=== PATIENT | female | born 1980 | race Caucasian/White ===

== ENCOUNTER 2017-05-09 13:21 | Emergency (ER) | payer BC ==
[~2017-05-09] VITALS: Ht 162.6 cm; Wt 149.7 kg
[~2017-05-09 13:21] MED LIST: ACHYD1T PO; LVT.1T PO; NAPR550T PO; ORPH100T PO; PREN1TAB39 PO; PROP1TAB77 PO
--- OUTSIDE RECORDS SUMMARY | 2017-05-09 13:28 | XMS REPORT | Continuity of Care Document ---
Author Author [facility] Address Unknown Phone Unavailable Allergies Active Description Code Type Severity Reaction Onset Reported/Identified Relationship to Patient Clinical Status Yes No Known Drug Allergies [id number] Drug Allergy Unknown N/A 12/01/2009 Medications There is no data. Problems Date Dx Coded Attending Type Code Diagnosis Diagnosed By 03/17/2011 Ot 631.8 OTHER ABNORMAL PRODUCTS OF CONCEPTION 04/12/2012 V04.81 FLU DX (3 YRS AND ABOVE, IM) 04/12/2012 V04.81 FLU DX (3 YRS AND ABOVE, IM) 04/12/2012 V04.81 FLU DX (3 YRS AND ABOVE, IM) 04/12/2012 RAJOTTE ROLLER COASTER DESIGNER, SARAHI A V04.81 FLU DX (3 YRS AND ABOVE, IM) 04/12/2012 RAJOTTE ROLLER COASTER DESIGNER, SARAHI A V04.81 FLU DX (3 YRS AND ABOVE, IM) 04/12/2012 RAJOTTE ROLLER COASTER DESIGNER, SARAHI A V04.81 FLU DX (3 YRS AND ABOVE, IM) 04/12/2012 RAJOTTE ROLLER COASTER DESIGNER, SARAHI A V04.81 FLU DX (3 YRS AND ABOVE, IM) 07/30/2012 466.0 BRONCHITIS, ACUTE 07/30/2012 786.05 SHORTNESS OF BREATH 07/30/2012 786.2 COUGH 07/30/2012 466.0 BRONCHITIS, ACUTE 07/30/2012 786.05 SHORTNESS OF BREATH 07/30/2012 786.2 COUGH 07/30/2012 RAJOTTE ROLLER COASTER DESIGNER, SARAHI A 466.0 BRONCHITIS, ACUTE 07/30/2012 RAJOTTE ROLLER COASTER DESIGNER, SARAHI A 786.05 SHORTNESS OF BREATH 07/30/2012 RAJOTTE ROLLER COASTER DESIGNER, SARAHI A 786.2 COUGH 07/30/2012 RAJOTTE ROLLER COASTER DESIGNER, SARAHI A 466.0 BRONCHITIS, ACUTE 07/30/2012 RAJOTTE ROLLER COASTER DESIGNER, SARAHI A 786.05 SHORTNESS OF BREATH 07/30/2012 RAJOTTE ROLLER COASTER DESIGNER, SARAHI A 786.2 COUGH 07/30/2012 RAJOTTE ROLLER COASTER DESIGNER, SARAHI A 466.0 BRONCHITIS, ACUTE 07/30/2012 RAJOTTE ROLLER COASTER DESIGNER, SARAHI A 786.05 SHORTNESS OF BREATH 07/30/2012 RAJOTTE ROLLER COASTER DESIGNER, SARAHI A 786.2 COUGH 07/30/2012 RAJOTTE ROLLER COASTER DESIGNER, SARAHI A 466.0 BRONCHITIS, ACUTE 07/30/2012 RAJOTTE ROLLER COASTER DESIGNER, SARAHI A 786.05 SHORTNESS OF BREATH 07/30/2012 RAJOTTE ROLLER COASTER DESIGNER, SARAHI A 786.2 COUGH 08/02/2012 461.0 SINUSITIS, ACUTE MAXILLARY 08/02/2012 RAJOTTE ROLLER COASTER DESIGNER, SARAHI A 461.0 SINUSITIS, ACUTE MAXILLARY 08/02/2012 RAJOTTE ROLLER COASTER DESIGNER, SARAHI A 461.0 SINUSITIS, ACUTE MAXILLARY 08/02/2012 RAJOTTE ROLLER COASTER DESIGNER, SARAHI A 461.0 SINUSITIS, ACUTE MAXILLARY 08/02/2012 RAJOTTE ROLLER COASTER DESIGNER, SARAHI A 461.0 SINUSITIS, ACUTE MAXILLARY 02/09/2014 RAJOTTE ROLLER COASTER DESIGNER, SARAHI A 462 PHARYNGITIS ACUTE 02/09/2014 RAJOTTE ROLLER COASTER DESIGNER, SARAHI A 463 TONSILLITIS ACUTE 02/09/2014 RAJOTTE ROLLER COASTER DESIGNER, SARAHI A 462 PHARYNGITIS ACUTE 02/09/2014 RAJOTTE ROLLER COASTER DESIGNER, SARAHI A 463 TONSILLITIS ACUTE 06/25/2014 Ot 241.1 07/03/2014 Ot 241.1 05/20/2015 IVANNA MICHELE DO Ot E06.3 10/04/2015 Ot 626.8 MENSTRUAL DISORDER NEC 10/04/2015 Ot 626.8 MENSTRUAL DISORDER NEC 10/04/2015 Ot 285.9 ANEMIA NOS 10/04/2015 Ot 631.8 OTHER ABNORMAL PRODUCTS OF CONCEPTION 10/04/2015 Ot V72.63 PRE- PROCEDURAL LABORATORY EXAMINATION 10/04/2015 Ot V74.8 SCREEN- BACTERIAL DIS NEC 10/04/2015 KHURRAM ISAACS DO Ot 241.0 NONTOX UNINODULAR GOITER 10/04/2015 KHURRAM ISAACS DO Ot 241.0 NONTOX UNINODULAR GOITER 10/04/2015 Ot 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 Encounters ACCT No. Visit Date/Time Discharge Status Pt. Type Provider Facility Loc./Unit Complaint [id number] 02/11/2014 08:37:00 02/11/2014 23:59:59 CLS Outpatient SARAHI GÓMEZ APRN [id number] 02/09/2014 08:57:00 02/09/2014 23:59:59 CLS Outpatient SARAHI GÓMEZ APRN [id number] 07/29/2013 10:48:00 07/29/2013 23:59:59 CLS Outpatient SARAHI GÓMEZ APRN [id number] 01/27/2013 09:35:00 01/27/2013 23:59:59 CLS Outpatient SARAHI GÓMEZ APRN [id number] 04/16/2012 12:08:00 04/16/2012 23:59:59 CLS Outpatient [id number] 08/02/2012 15:35:00 Document Registration [id number] 07/30/2012 08:21:00 Document Registration [id number] 04/16/2012 13:10:33 RECURRING [id number] 05/06/2015 08:07:00 05/06/2015 23:59:59 CLS Outpatient IVANNA MICHELE DO [facility] LAB [id number] 04/29/2013 08:52:00 04/29/2013 23:59:59 CLS Outpatient KHURRAM ISAACS DO [facility] RAD [id number] 04/15/2013 10:04:00 04/15/2013 23:59:59 CLS Outpatient KHURRAM ISAACS DO [facility] RAD [id number] 05/09/2017 13:23:00 ACT Emergency AFSHAN SMITH, IKE Rocha [facility] ER COUGH,DIZZY,SHAKEY [id number] 10/04/2015 05:53:00 Document Registration [id number] 06/17/2014 11:18:00 Document Registration [id number] 06/08/2014 15:45:00 Document Registration [id number] 03/17/2011 05:30:00 Document Registration [id number] 03/16/2011 09:53:00 Document Registration [id number] 10/12/2010 09:57:00 Document Registration [id number] 08/16/2010 15:26:00 Document Registration
--- OUTSIDE RECORDS SUMMARY | 2017-05-09 13:28 | XMS REPORT ---
Author Author SARAHI GÓMEZ [facility] [employer] Address Unknown Phone Unavailable Care Team Providers Care Car Hop Name Role Phone SARAHI GÓMEZ CP Unavailable Allergies No Known Allergies Problems Problem Type Condition Code Onset Dates Condition Status Problem Cough 786.2 Active Assessment Cough R05 Active Problem Acute maxillary sinusitis 461.0 Active Problem Acute tonsillitis 463 Active Problem Obstructive chronic bronchitis, with (acute) exacerbation 491.21 Active Problem Shortness of breath 786.05 Active Problem Acute bronchitis 466.0 Active Problem Acute pharyngitis 462 Active Problem Need for prophylactic vaccination and inoculation, Influenza V04.81 Active Medications No Known Medications Procedures Procedure Coding System Code Date CHEST X-RAY CPT-4 75765 Jan 19, 2016 Results No Known Results Summary Purpose eClinicalWorks Submission
--- OUTSIDE RECORDS SUMMARY | 2017-05-09 13:28 | XMS REPORT ---
Author Author SARAHI GÓMEZ [facility] [facility] Address [address] [place] [address] Care Team Providers Care Clinical Programmer Name Role Phone GRZEGORZMonseSARAHI Unavailable PROBLEMS Type Condition ICD9-CM Code [id number] Code Onset Dates Condition Status SNOMED Code Assessment Acute recurrent frontal sinusitis J01.11 Mar, Active [id number] ALLERGIES Substance Reaction Event Type Date Status N.K.D.A. Unknown Non Drug Allergy Mar, Unknown SOCIAL HISTORY No smoking Hx information available PLAN OF CARE VITAL SIGNS Height 64 in 2016-03-09 Weight 308 lbs 2016-03-09 Heart Rate 80 bpm 2016-03-09 Respiratory Rate 20 2016-03-09 BMI 52.86 kg/m2 2016-03-09 Blood pressure systolic 120 mmHg 2016-03-09 Blood pressure diastolic 76 mmHg 2016-03-09 MEDICATIONS Medication Instructions Dosage Frequency Start Date End Date Duration Status Levothyroxine Sodium Active Flonase Allergy Relief 50 MCG/ACT Nasally twice a day 1 spray in each nostril 12h Mar, 30 day(s) Active Levaquin 500 MG Orally Once a day 1 tablet 24h Mar, Mar, 10 day(s) Active Spironolactone Active Metformin HCl Active RESULTS No Results PROCEDURES Procedure Date Ordered Related Diagnosis Body Site Office Visit, Est Pt., Level 4 Mar 09, 2016 IMMUNIZATIONS No Known Immunizations
--- OUTSIDE RECORDS SUMMARY | 2017-05-09 13:28 | XMS REPORT ---
Author Author SARAHI GÓMEZ [facility] Address [address] [place] [address] Care Team Providers Care Alteration Specialist Name Role Phone SARAHI GÓMEZ Unavailable PROBLEMS Unknown Problems ALLERGIES No Known Allergies SOCIAL HISTORY No smoking Hx information available PLAN OF CARE Activity Details Follow Up prn Reason: VITAL SIGNS Height 64 in 2016-04-18 Weight 308 lbs 2016-04-18 Temperature 98.1 degrees Fahrenheit 2016-04-18 Heart Rate 103 bpm 2016-04-18 Respiratory Rate 20 2016-04-18 BMI 52.86 kg/m2 2016-04-18 Blood pressure systolic 120 mmHg 2016-04-18 Blood pressure diastolic 84 mmHg 2016-04-18 MEDICATIONS Medication Instructions Dosage Frequency Start Date End Date Duration Status Spironolactone Active Flonase Allergy Relief 50 MCG/ACT Nasally twice a day 1 spray in each nostril 12h 08 Mar, 2016 30 day(s) Active Cephalexin 500 MG Orally Twice a day 1 capsule 12h Apr, Apr, 10 day(s) Active Levothyroxine Sodium Active Metformin HCl Active RESULTS No Results PROCEDURES Procedure Date Ordered Related Diagnosis Body Site Office Visit, Est Pt., Level 3 Apr 18, 2016 IMMUNIZATIONS No Known Immunizations
--- OUTSIDE RECORDS SUMMARY | 2017-05-09 13:28 | XMS REPORT ---
Author SARAHI Woods [facility] [employer] Address Unknown Phone Unavailable Care Team Providers Care Biomedical Engineering Technician Name Role Phone SARAHI GÓMEZ CP Unavailable Allergies No Known Allergies Problems Problem Type Condition Code Onset Dates Condition Status Problem Cough 786.2 Active Assessment Encounter for immunization Z23 Active Problem Acute maxillary sinusitis 461.0 Active Problem Acute tonsillitis 463 Active Problem Obstructive chronic bronchitis, with (acute) exacerbation 491.21 Active Problem Shortness of breath 786.05 Active Problem Acute bronchitis 466.0 Active Problem Acute pharyngitis 462 Active Problem Need for prophylactic vaccination and inoculation, Influenza V04.81 Active Medications No Known Medications Procedures Procedure Coding System Code Date SINGLE IMMUNIZATION ADMIN CPT-4 29476 Jan 18, 2015 TDAP (BOOSTRIX) CPT-4 69315 Jan 18, 2015 Results No Known Results Immunizations Vaccine Administration Date TDAP (BOOSTRIX) Jan 18, 2015 Summary Purpose eClinicalWorks Submission
--- OUTSIDE RECORDS SUMMARY | 2017-05-09 13:28 | XMS REPORT ---
Author Author SARAHI GÓMEZ [facility] [employer] Address Unknown Phone Unavailable Care Team Providers Care Edge Inker Name Role Phone SARAHI GÓMEZ CP Unavailable Allergies, Adverse Reactions, Alerts Substance Reaction Event Type N.K.D.A. Info Not Available Non Drug Allergy Problems Problem Type Condition Code Onset Dates Condition Status Problem Cough 786.2 Active Assessment Sinusitis J32.9 Active Problem Acute maxillary sinusitis 461.0 Active Problem Acute tonsillitis 463 Active Problem Obstructive chronic bronchitis, with (acute) exacerbation 491.21 Active Problem Shortness of breath 786.05 Active Problem Acute bronchitis 466.0 Active Problem Acute pharyngitis 462 Active Problem Need for prophylactic vaccination and inoculation, Influenza V04.81 Active Medications Medication Code System Code Instructions Start Date End Date Status Dosage Spironolactone [facility] [address]-90 not defined Flonase Allergy Relief [facility] [address]-57 50 MCG/ACT Nasally twice a day August 03, 2015 1 spray in each nostril Levothyroxine Sodium [facility] [address]-39 not defined Metformin HCl [facility] [address]-18 not defined Augmentin [facility] [address]-98 500-125 MG Orally 2 times a day August 03, 2015 August 17, 2015 1 tablet Procedures Procedure Coding System Code Date Office Visit, Est Pt., Level 4 CPT-4 68733 August 03, 2015 Vital Signs Date/Time: August 03, 2015 Temperature 98.4 F Weight 310 lbs Height 64 in BMI 53.21 Index Cardiac Monitoring Heart Rate 88 bpm Results No Known Results Summary Purpose eClinicalWorks Submission
--- OUTSIDE RECORDS SUMMARY | 2017-05-09 13:28 | XMS REPORT ---
Author Author SARAHI GÓMEZ Organization [employer] Address Unknown Phone Unavailable Care Team Providers Care Telemetry Technician Name Role Phone SARAHI GÓMEZ CP [...] Influenza V04.81 Active Medications No Known Medications Results No Known Results Summary Purpose eClinicalWorks Submission
--- OUTSIDE RECORDS SUMMARY | 2017-05-09 13:28 | XMS REPORT ---
Author Author SARAHI GÓMEZ [facility] [employer] Address Unknown Phone Unavailable Care Team Providers Care Powder Mixer Name Role Phone SARAHI GÓMEZ Unavailable Allergies No Known Allergies Problems Problem Type Condition Code Onset Dates Condition Status Problem Cough 786.2 Active Problem Acute maxillary sinusitis 461.0 Active Problem Acute tonsillitis 463 Active Problem Obstructive chronic bronchitis, with (acute) exacerbation 491.21 Active Problem Shortness of breath 786.05 Active Problem Acute bronchitis 466.0 Active Problem Acute pharyngitis 462 Active Problem Need for prophylactic vaccination and inoculation, Influenza V04.81 Active Medications Medication Code System Code Instructions Start Date End Date Status Dosage Zithromax Z-Doug [facility] [address]-70 250 MG Orally Once a day Jan 19, 2016 Jan 24, 2016 2 tablets on the first day, then 1 tablet daily for 4 days Lazaronatasha Mehnaz [facility] [address]-05 100 MG Orally Three times a day Jan 19, 2016 1 capsule as 1-2needed Results No Known Results Summary Purpose eClinicalWorks Submission
--- OUTSIDE RECORDS SUMMARY | 2017-05-09 13:28 | XMS REPORT ---
Author Author SARAHI GÓMEZ [facility] [employer] Address Unknown Phone Unavailable Care Team Providers Care Jewelry Appraiser Name Role Phone SARAHI GÓMEZ CP Unavailable Allergies, Adverse Reactions, Alerts Substance Reaction Event Type N.K.D.A. Info Not Available Non Drug Allergy Problems Problem Type Condition Code Onset Dates Condition Status Problem Cough 786.2 Active Assessment Bronchitis J40 Active Problem Acute maxillary sinusitis 461.0 Active Problem Acute tonsillitis 463 Active Problem Obstructive chronic bronchitis, with (acute) exacerbation 491.21 Active Problem Shortness of breath 786.05 Active Problem Acute bronchitis 466.0 Active Problem Acute pharyngitis 462 Active Problem Need for prophylactic vaccination and inoculation, Influenza V04.81 Active Medications Medication Code System Code Instructions Start Date End Date Status Dosage Spironolactone [facility] [address]-09 not defined Metformin HCl [facility] [address]-81 not defined Levothyroxine Sodium [facility] [address]-49 not defined Procedures Procedure Coding System Code Date THER/PROPH/DIAG INJ, SC/IM CPT-4 63118 Jan 18, 2016 Office Visit, Est Pt., Level 4 CPT-4 59749 Jan 18, 2016 DEPO MEDROL 80 MG/ML CPT-4 J1040 Jan 18, 2016 Vital Signs Date/Time: Jan 18, 2016 Cardiac Monitoring Heart Rate 86 bpm Weight 308 lbs Height 64 in BMI 52.86 Index Blood Pressure Diastolic 70 mmHg Blood Pressure Systolic 124 mmHg Results No Known Results Summary Purpose eClinicalWorks Submission
[2017-05-09] MEDS ORDERED: NS IV 1000 ML 1,000 ML IV SCH (13:30)
[2017-05-09] MEDS ORDERED: PROMETHAZINE/ CODEINE SYRUP 5 ML UDC PO ONE (13:30)
--- NOTE | 2017-05-09 13:35 | ED Cough/URI ---
General Stated Complaint: COUGH,DIZZY,SHAKEY Source: patient Exam Limitations: no limitations History of Present Illness Date Seen by Provider: May 09, 2017 Time Seen by Provider: 13:32 Initial Comments To ER with cough, dizziness, shakiness, weakness. Patient was diagnosed with bronchitis on 04/13/17. She then went back a week later and was given a course of steroids and nebulizer. She then went back last week and was started on Zithromax. 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 She has an IUD but does not take oral contraceptives. No history of DVT. No unilateral leg swelling. Cough is nonproductive. No fevers. Timing/Duration: constant Severity/Quality: dry cough Associated Symptoms: cough, shortness of breath Allergies and Home Medications Allergies Coded Allergies: No Known Drug Allergies (Unverified , 12/01/09) Home Medications Hydrocodone Bit/Acetaminophen 1 Tab Tablet, 1-2 TAB PO q3hrs PRN, #60 (Reported) for pain Levothyroxine Sodium 100 Mcg Tablet, 1 EACH PO DAILY, (Reported) Metoprolol Succinate 50 Mg Tab.er.24h, 50 MG PO DAILY, #14 Prescribed by: ALBERTO MCCOY on 05/09/17 1513 Vits W-Ca,Fe,Fa(<1MG) 1 Each Tablet, 1 EACH PO DAILY, (Reported) Promethazine HCl/Codeine 118 Ml Syrup, 5 ML PO Q6H PRN for COUGH, #120 Prescribed by: ALBEROT MCCOY on 05/09/17 1513 Constitutional: see HPI EENTM: see HPI Respiratory: no symptoms reported Cardiovascular: no symptoms reported Genitourinary: no symptoms reported Musculoskeletal: see HPI Skin: no symptoms reported Psychiatric/Neurological: No Symptoms Reported Hematologic/Lymphatic: No Symptoms Reported Past Nrtsxki-Ifizkk-Xpyppc Hx Patient Social History Recent Foreign Travel: No Contact w/Someone Who Travel: No Reproductive System Hx Reproductive Disorders: Yes ("POLYCYSTIC OVARIES") Physical Exam Vital Signs Vital Signs - First Documented 05/09/17 13:25 Temp 97.9 Pulse 97 Resp 18 B/P (MAP) 175/109 (131) Pulse Ox 98 Capillary Refill : General Appearance: WD/WN, no apparent distress, obese (I), other (her oxygen saturation is 99% on room air.) Eyes: Bilateral Eye Normal Inspection, Bilateral Eye PERRL, Bilateral Eye EOMI HEENT: PERRL/EOMI, normal ENT inspection, TMs normal Neck: non-tender, full range of motion Respiratory: normal breath sounds, no respiratory distress, no accessory muscle use Cardiovascular: regular rate, rhythm, no murmur Gastrointestinal: normal bowel sounds, non tender, soft Extremities: normal range of motion, non-tender Neurologic/Psychiatric: alert, normal mood/affect, oriented x 3 Skin: normal color, warm/dry Progress/Results/Core Measures Suspected Sepsis SIRS Temperature: Pulse: Respiratory Rate: Laboratory Tests 05/09/17 13:34: White Blood Count 7.8 Blood Pressure / Mean: Laboratory Tests 05/09/17 13:34: Creatinine 0.84, Platelet Count 294, Total Bilirubin 0.2 Results/Orders Lab Results Laboratory Tests Test 05/09/17 13:24 05/09/17 13:34 Range/Units Thyroid Stimulating Hormone (TSH) 9.87 H 0.35-4.94 UIU/ML Free Thyroxine 0.77 0.70-1.48 NG/DL White Blood Count 7.8 4.3-11.0 10^3/uL Red Blood Count 4.79 4.35-5.85 10^6/uL Hemoglobin 13.4 11.5-16.0 G/DL Hematocrit 41 35-52 % Mean Corpuscular Volume 85 80-99 FL Mean Corpuscular Hemoglobin 28 25-34 PG Mean Corpuscular Hemoglobin Concent 33 32-36 G/DL Red Cell Distribution Width 14.4 10.0-14.5 % Platelet Count 294 130-400 10^3/uL Mean Platelet Volume 10.1 7.4-10.4 FL Neutrophils (%) (Auto) 53 42-75 % Lymphocytes (%) (Auto) 34 12-44 % Monocytes (%) (Auto) 12 0-12 % Eosinophils (%) (Auto) 1 0-10 % Basophils (%) (Auto) 0 0-10 % Neutrophils # (Auto) 4.1 1.8-7.8 X 10^3 Lymphocytes # (Auto) 2.7 1.0-4.0 X 10^3 Monocytes # (Auto) 0.9 0.0-1.0 X 10^3 Eosinophils # (Auto) 0.1 0.0-0.3 10^3/uL Basophils # (Auto) 0.0 0.0-0.1 10^3/uL D-Dimer 0.55 H 0.00-0.49 UG/ML Sodium Level 136 135-145 MMOL/L Potassium Level 4.0 3.6-5.0 MMOL/L Chloride Level 102 98-107 MMOL/L Carbon Dioxide Level 22 21-32 MMOL/L Anion Gap 12 5-14 MMOL/L Blood Urea Nitrogen 20 H 7-18 MG/DL Creatinine 0.84 0.60-1.30 MG/DL Estimat Glomerular Filtration Rate > 60 BUN/Creatinine Ratio 24 Glucose Level 140 H 70-105 MG/DL Calcium Level 8.6 8.5-10.1 MG/DL Total Bilirubin 0.2 0.1-1.0 MG/DL Aspartate Amino Transf (AST/SGOT) 17 5-34 U/L Alanine Aminotransferase (ALT/SGPT) 17 0-55 U/L Alkaline Phosphatase 99 40-136 U/L Total Protein 7.1 6.4-8.2 GM/DL Albumin 3.6 3.2-4.5 GM/DL Serum Test, Qualitative NEGATIVE NEGATIVE My Orders Orders - ALBERTO MCCOY FIGURE CLERK Cbc With Automated Diff (05/09/17 13:29) Comprehensive Metabolic Panel (05/09/17 13:29) Fibrin Degradation Products (05/09/17 13:29) Hcg,Qualitative Serum (05/09/17 13:29) Saline Lock/Iv-Start (05/09/17 13:29) Chest Pa/Lat (2 View) (05/09/17 13:29) Ns Iv 1000 Ml (Sodium Chloride 0.9%) (05/09/17 13:30) Promethazine/ Codeine Syrup (Phenergan W (05/09/17 13:30) Ct Angio Chest W (05/09/17 14:02) Iohexol Injection (Omnipaque 350 Mg/Ml 1 (05/09/17 14:15) Ns (Ivpb) (Sodium Chloride 0.9%) (05/09/17 14:15) Thyroid Stimulating Hormone (05/09/17 14:31) Free T4 (Free Thyroxine) (05/09/17 14:31) BNP (05/09/17 15:08) Medications Given in ED Current Medications Medications Dose Ordered Sig/Sloan Route Start Time Stop Time Status Last Admin Dose Admin Iohexol 125 ml ONCE ONCE IV 05/09/17 14:15 05/09/17 14:16 DC 05/09/17 14:28 125 ML Promethazine HCl/ Codeine 7.5 ml ONCE ONCE PO 05/09/17 13:30 05/09/17 13:31 DC 05/09/17 13:43 7.5 ML Sodium Chloride 250 ml ONCE ONCE IV 05/09/17 14:15 05/09/17 14:16 DC 05/09/17 14:28 80 ML Vital Signs/I&O Vital Sign - Last 12Hours 05/09/17 13:25 Temp 97.9 Pulse 97 Resp 18 B/P (MAP) 175/109 (131) Pulse Ox 98 Capillary Refill : Diagnostic Imaging Diagonstic Imaging: Xray, CT Plain Films/CT/US/NM/MRI: chest Comments NAME: KERWIN [facility] REC#: [id number] PT STATUS: REG ER : 1980 PHYSICIAN: ALBERTO MCCOY APRN ADMIT DATE: 05/09/17/ER Draft Date of Exam:05/09/17 CT ANGIO CHEST W PROCEDURE: CT angiography of the chest with contrast. TECHNIQUE: Multiple contiguous axial images were obtained through the chest after uneventful bolus administration of intravenous contrast. Reconstructed CTA MIP acquisitions were also performed. INDICATION: Respiratory distress. FINDINGS: There are no previous CTA chest examinations available for comparison. The plain film examination of the chest performed earlier today failed to show any sign of an acute abnormality. The heart is borderline enlarged. There are no coronary artery calcifications identified. The aorta is not abnormally dilated and there is no sign of dissection. The pulmonary arteries are not fully opacified. There is no definite defect to suggest a pulmonary embolus, however There is slightly increased density in both perihilar regions. This may be related to mild pulmonary congestion. Viral pneumonitis/bronchitis could also present in this manner. There is no consolidated pneumonia identified and there is no evidence for a pleural effusion. There is no parenchymal lung mass identified either. There is no mediastinal or hilar adenopathy. There is a lobulated 1.2 x 2.6 cm area of low density in the inferior pole of the right lobe of the thyroid. This finding was also identified on the thyroid ultrasound exam of 06/17/2014 and does not appear to have changed significantly. It is my understanding that these lesions have been biopsied. The thyroid gland where visualized is otherwise unremarkable. There is no obvious breast mass. The sections through the upper abdomen fail to show any sign of an acute abnormality. The bone windows are unremarkable for a fracture or for a destructive lesion. The patient does appear to be morbidly obese. IMPRESSION: 1. The vague areas of increased density about both chidi do raise the question of mild pulmonary congestion. Mild bronchitis/pneumonitis could also present in this manner. There is no consolidated pneumonia or pleural effusion identified. 2. The pulmonary arteries are not fully opacified, but there is no definite defect to indicate a pulmonary embolus. 3. The lobulated areas of low density in the inferior pole of the right lobe of the thyroid are most likely benign. Correlation with the patient's biopsy results will be recommended. 4. These results were discussed with Alberto Mccoy APRN. Dictated on workstation # [id number] Dict: 05/09/17 1446 Trans: 05/09/17 1457 [id number] Interpreted by: ROSLYN ROMAN MD Electronically signed by: Departure Communication (Admissions) Progress Notes 1546-with an appropriately sized cuff her blood pressure is 127/73 Impression Impression: Primary Impression: Bronchitis Disposition: 01 HOME, SELF-CARE Condition: Stable Departure-Patient Inst. Decision time for Depature: 15:09 Referrals: [facility] [place] Primary Care Physician SARAHI GÓMEZ (Family) Primary Care Physician Patient Instructions: Shortness of Breath (Dyspnea) Add. Discharge Instructions: 1. Follow-up with your provider within 48 hours for recheck. They will possibly refer you to the surface ship usw supervisor as the size of your heart on xray was slightly larger than expected for your age. 2. Return to ER for any worsening symptoms such as increased shortness of breath , fevers, or other con 3. Also, your thyroid medication may need to be increased as you appear a bit hypothyroid Scripts Metoprolol Succinate (Metoprolol Succinate) 50 Mg Tab.er.24h 50 MG PO DAILY, #14 TAB Prov: ALBERTO MCCOY APRN 05/09/17 Promethazine HCl/Codeine (Promethazine-Codeine Syrup) 118 Ml Syrup 5 ML PO Q6H Y for COUGH, #120 ML Prov: ALBERTO MCCOY APRN 05/09/17 Work/School Note: Work Release Form Date Seen in the Emergency Department: May 09, 2017 Return to Work: May 11, 2017 Copy Copies To 1: JEWELL VAZQUEZ PETER J APRN May 09, 2017 13:35
[2017-05-09 13:41] LABS: BASOPHILS % (AUTO) 0 % (0-10); EOSINOPHILS # (AUTO) 0.1 10^3/uL (0.0-0.3); EOSINOPHILS % (AUTO) 1 % (0-10); HEMATOCRIT 41 % (35-52); HEMOGLOBIN 13.4 G/DL (11.5-16.0); LYMPHOCYTES # (AUTO) 2.7 X 10^3 (1.0-4.0); LYMPHOCYTES % (AUTO) 34 % (12-44); MEAN CORPUSCULAR HEMOGLOBIN 28 PG (25-34); MEAN CORPUSCULAR HGB CONC 33 G/DL (32-36); MEAN CORPUSCULAR VOLUME 85 FL (80-99); MEAN PLATELET VOLUME 10.1 FL (7.4-10.4); MONOCYTES # (AUTO) 0.9 X 10^3 (0.0-1.0); MONOCYTES % (AUTO) 12 % (0-12); NEUTROPHILS # (AUTO) 4.1 X 10^3 (1.8-7.8); NEUTROPHILS % (AUTO) 53 % (42-75); PLATELET COUNT 294 10^3/uL (130-400); RED BLOOD COUNT 4.79 10^6/uL (4.35-5.85); RED CELL DISTRIBUTION WIDTH 14.4 % (10.0-14.5); WHITE BLOOD COUNT 7.8 10^3/uL (4.3-11.0)
[2017-05-09 14:11] LABS: ALANINE AMINOTRANSFERASE 17 U/L (0-55); ALBUMIN 3.6 GM/DL (3.2-4.5); ALKALINE PHOSPHATASE 99 U/L (40-136); BILIRUBIN,TOTAL 0.2 MG/DL (0.1-1.0); BUN/CREATININE RATIO 24; CALCIUM 8.6 MG/DL (8.5-10.1); CARBON DIOXIDE 22 MMOL/L (21-32); CHLORIDE 102 MMOL/L (98-107); CREATININE SERUM 0.84 MG/DL (0.60-1.30); GFR ESTIMATED > 60; GLUCOSE 140 MG/DL (70-105); SODIUM 136 MMOL/L (135-145); TOTAL PROTEIN 7.1 GM/DL (6.4-8.2)
[2017-05-09] MEDS ORDERED: NS 250 ML (IVPB) BAG IV ONE (14:15)
[2017-05-09] MEDS ORDERED: IOHEXOL 350 MG/ML 150 ML (OMNIPAQUE 350) VIAL IV ONE (14:15)
--- NOTE | 2017-05-09 14:26 | Diagnostic Imaging Report ---
EXAMINATION: PA and lateral chest obtained. INDICATION: Cough The heart is borderline enlarged and similar to the prior exam of 01/25/2010. The lungs are clear. There is no evidence for failure, pneumonia or for a pleural effusion. Mediastinum is not widened. The osseous structures are intact. IMPRESSION: There is borderline cardiomegaly but there is no evidence for an acute cardiopulmonary abnormality. Dictated by: Dictated on workstation # [id number]
--- NOTE | 2017-05-09 14:58 | Diagnostic Imaging Report ---
PROCEDURE: CT angiography of the chest with contrast. TECHNIQUE: Multiple contiguous axial images were obtained through the chest after uneventful bolus administration of intravenous contrast. Reconstructed CTA MIP acquisitions were also performed. INDICATION: Respiratory distress. FINDINGS: There are no previous CTA chest examinations available for comparison. The plain film examination of the chest performed earlier today failed to show any sign of an acute abnormality. The heart is borderline enlarged. There are no coronary artery calcifications identified. The aorta is not abnormally dilated and there is no sign of dissection. The pulmonary arteries are not fully opacified. There is no definite defect to suggest a pulmonary embolus, however There is slightly increased density in both perihilar regions. This may be related to mild pulmonary congestion. Viral pneumonitis/bronchitis could also present in this manner. There is no consolidated pneumonia identified and there is no evidence for a pleural effusion. There is no parenchymal lung mass identified either. There is no mediastinal or hilar adenopathy. There is a lobulated 1.2 x 2.6 cm area of low density in the inferior pole of the right lobe of the thyroid. This finding was also identified on the thyroid ultrasound exam of 06/17/2014 and does not appear to have changed significantly. It is my understanding that these lesions have been biopsied. The thyroid gland where visualized is otherwise unremarkable. There is no obvious breast mass. The sections through the upper abdomen fail to show any sign of an acute abnormality. The bone windows are unremarkable for a fracture or for a destructive lesion. The patient does appear to be morbidly obese. IMPRESSION: 1. The vague areas of increased density about both chidi do raise the question of mild pulmonary congestion. Mild bronchitis/pneumonitis could also present in this manner. There is no consolidated pneumonia or pleural effusion identified. 2. The pulmonary arteries are not fully opacified, but there is no definite defect to indicate a pulmonary embolus. 3. The lobulated areas of low density in the inferior pole of the right lobe of the thyroid are most likely benign. Correlation with the patient's biopsy results will be recommended. 4. These results were discussed with Willi Mccoy APRN. Dictated by: Dictated on workstation # [id number]
[2017-05-09] MEDS ORDERED: CODE118S2 PO (15:13)
[2017-05-09] MEDS ORDERED: METO-370 PO (15:13)
[2017-05-09 15:34] LABS: FREE T4 (FREE THYROXINE) 0.77 NG/DL (0.70-1.48)
[2017-05-09 15:57] VITALS: BP 128/71
== END 2017-05-09 15:56 | disposition home or self-care (01) ==
LOC: EDUNIT# 13:21 → ER 13:23
DX: J40 Bronchitis, not specified as acute or chronic (principal); Z87.448 Personal history of other diseases of urinary system
CPT/HCPCS: 36415; 71046; 71275; 80053; 83880; 84439; 84443; 84703; 85025; 85379; 96360; 96361

== ENCOUNTER → 2018-01-31 | Outpatient (CLI) | payer BC ==
[~2018-01-31] MED LIST changes: +CODE118S4 PO; +METO-370 PO
--- NOTE | 2018-01-31 11:30 | Diagnostic Imaging Report ---
PROCEDURE: US Thyroid. TECHNIQUE: Multiple real-time grayscale images were obtained of the thyroid in various projections. INDICATION: Thyroid nodule. Comparison is made with prior thyroid ultrasound from 06/17/2014. FINDINGS: Right lobe of the thyroid measures 5.9 x 2.3 x 2.5 cm and left lobe measures 5.9 x 2.0 x 2.4 cm. Both lobes remain heterogeneous. Mixed solid and cystic mass in the inferior right lobe of thyroid is again seen measuring 2.9 cm transverse by 3.0 cm cephalocaudal by 2.3 cm AP. This compares with 2.4 cm transverse by 2.4 cm cephalocaudal by 1.8 cm AP on prior exam. No new thyroid mass is detected. IMPRESSION: There has been some increase in size of the mixed solid and cystic mass involving the right lobe of the thyroid when compared with prior study dating back to 06/17/2014. Dictated by: Dictated on workstation # [id number]
== END ==
LOC: RAD 10:51
PROVIDERS: ATTEND Nurse Practitioner Family
DX: E04.1 Nontoxic single thyroid nodule (principal)
CPT/HCPCS: 76536

== ENCOUNTER 2018-07-25 08:10 | Emergency (ER) | payer BC ==
[~2018-07-25] VITALS: Ht 162.6 cm; Wt 154.2 kg
--- OUTSIDE RECORDS SUMMARY | 2018-07-25 08:17 | XMS REPORT ---
Author Author CALOS OVERTON Organization [facility] Address [address] [place] [address] Care Team Providers Care Sand Mill Operator Name Role Phone CALOS OVERTON Unavailable PROBLEMS Type Condition ICD9-CM Code [id number] Code Onset Dates Condition Status SNOMED Code Problem Excessive daytime sleepiness G47.19 Active 792220653019 Problem Autoimmune thyroiditis E06.3 Active 77559164 Problem Snoring R06.83 Active 49232900 Problem BMI 50.0-59.9, adult Z68.43 Active 555730950 Problem Acquired hypothyroidism E03.9 Active 933763010 Problem Leukocytosis, unspecified type D72.829 Active 560211698 Problem Arthralgia, unspecified joint M25.50 Active 45592033 Problem Thyroid nodule E04.1 Active 815304263 Problem Other specified hypothyroidism E03.8 Active 825507634 Problem Gasping for breath R06.89 Active 00575339 Problem PCOS (polycystic ovarian syndrome) E28.2 Active 94386565 ALLERGIES No Information ENCOUNTERS Encounter Location Date Diagnosis [place] [id number] [address] Mar, Leukocytosis, unspecified type D72.829 [facility] [id number] [place] [id number] Mar, Acquired hypothyroidism E03.9 [place] [id number] [place] [address] Mar, Nausea R11.0 [place] [id number] [place] [address] Jan, [place] [id number] [place] [address] Jan, Acquired hypothyroidism E03.9 and Thyroid mass E07.9 [facility] [address] [address] Dec, Acquired hypothyroidism E03.9 and Positive YULY (antinuclear antibody) R76.8 [facility] [address] [address] Dec, Autoimmune thyroiditis E06.3 ; Other specified hypothyroidism E03.8 ; PCOS (polycystic ovarian syndrome) E28.2 and Arthralgia, unspecified joint M25.50 [facility] [address] [address] Dec, Encounter for immunization Z23 [facility] [address] [id number] Dec, Other specified hypothyroidism E03.8 ; Autoimmune thyroiditis E06.3 ; PCOS (polycystic ovarian syndrome) E28.2 ; Arthralgia, unspecified joint M25.50 ; BMI 50.0-59.9, adult Z68.43 ; Thyroid nodule E04.1 ; Excessive daytime sleepiness G47.19 ; Snoring R06.83 and Gasping for breath R06.89 [facility] [address] [address] May, [facility] [address] [id number] May, Acute suppurative otitis media of left ear without spontaneous rupture of tympanic membrane, recurrence not specified H66.002 and Cough R05 [facility] [id number] [place] [address] May, [facility] [address] [address] Apr, [facility] [id number] [place] [address] Apr, Viral URI J06.9 and BMI 50.0-59.9, adult Z68.43 [place] [id number] [place] [id number] Apr, Bronchitis J40 ; Orthopnea R06.01 ; Shortness of breath R06.02 and BMI 50.0-59.9, adult Z68.43 [facility] [address] [id number] Apr, Bronchitis J40 and Flu-like symptoms R68.89 [facility] [address] [address] May, Sore throat J02.9 and Acute tonsillitis, unspecified etiology J03.90 [facility] [address] [id number] Apr, Insect bite (nonvenomous) of right elbow, initial encounter S50.361A and Bitten or stung by nonvenomous insect and other nonvenomous arthropods, initial encounter W57.XXXA [facility] [address] [id number] Mar, Acute recurrent frontal sinusitis J01.11 [place] [address] [address] Dec, [place] [id number] [place] [address] Dec, Cough R05 [place] [address] [address] Dec, Cough R05 [facility] [address] [id number] Dec, Bronchitis J40 [place] [address] [id number] July, Sinusitis J32.9 [facility] [address] [id number] May, Pharyngitis J02.9 [place] [address] [place] [id number] [place] [address] Dec, Encounter for immunization Z23 [facility] [address] [id number] [place] [address] Jul, 2014 [facility] [place] [facility] [address] [id number] [place] [address] Jul, [facility] [place] [facility] [address] [id number] [place] [address] May, [facility] [place] [facility] [address] [id number] [place] [address] May, [facility] [place] [facility] [address] [facility] [id number] [place] [address] Jan, [facility] [place] [facility] [address] [facility] [id number] [place] [address] Jan, [facility] [place] [facility] [address] [facility] [id number] [place] [address] Jan, [facility] [place] [facility] [address] [facility] [id number] [place] [address] Jan, [facility] [place] [facility] [address] [facility] [id number] [place] [address] Jan, [facility] [place] [facility] [address] [facility] [id number] [place] [address] Jan, [facility] [place] [facility] [address] [facility] [id number] [place] [address] Jul, [facility] [place] [facility] [address] [id number] [place] [address] Jul, [facility] [place] [facility] [address] [facility] [id number] [place] [address] Dec, [facility] [place] [facility] [address] [facility] [id number] [place] [address] Dec, [facility] [place] [facility] [address] [facility] [id number] [place] [address] July, [facility] [address] [facility] [id number] [place] [address] Jul, [facility] [address] [facility] [id number] [address] Apr, IMMUNIZATIONS No Known Immunizations SOCIAL HISTORY Never Assessed REASON FOR VISIT lab order PLAN OF CARE VITAL SIGNS MEDICATIONS Unknown Medications RESULTS No Results PROCEDURES No Known procedures INSTRUCTIONS MEDICATIONS ADMINISTERED No Known Medications MEDICAL (GENERAL) HISTORY Type Description Date Medical History hypothyroid Medical History obesity Medical History PCOS Medical History seasonal allergies Medical History painful joints Surgical History No know Surgical history Hospitalization History No know Hospitalization history
--- OUTSIDE RECORDS SUMMARY | 2018-07-25 08:17 | XMS REPORT ---
Author Author Migration, Doctor Organization [facility] Address Unknown Phone Unavailable Care Team Providers Care Construction Ironworker Name Role Phone Migration, Doctor Unavailable Unavailable PROBLEMS Type Condition ICD9-CM Code PGA23-EY Code Onset Dates Condition Status SNOMED Code Problem Excessive daytime sleepiness G47.19 Active 124848476799 Problem Snoring R06.83 Active 15080461 Problem Autoimmune thyroiditis E06.3 Active 91580439 Problem Arthralgia, unspecified joint M25.50 Active 02497979 Problem Acquired hypothyroidism E03.9 Active 412556967 Problem Leukocytosis, unspecified type D72.829 Active 232416143 Problem BMI 50.0-59.9, adult Z68.43 Active 971728290 Problem Other specified hypothyroidism E03.8 Active 289709651 Problem Thyroid nodule E04.1 Active 865059811 Problem PCOS (polycystic ovarian syndrome) E28.2 Active 83602746 Problem Gasping for breath R06.89 Active 34990501 ALLERGIES No Information ENCOUNTERS Encounter Location Date Diagnosis [facility] [id number] [place] [id number] 22 Apr, 2018 History of asthma Z87.09 and Cough R05 [facility] [address] [id number] 14 Apr, 2018 Cough R05 and BMI 60.0-69.9, adult Z68.44 [facility] [address] [id number] [address] Apr, Acquired hypothyroidism E03.9 [facility] [id number] [place] [address] 81556- 6517 Mar, Acquired hypothyroidism E03.9 and Leukocytosis, unspecified type D72.829 [facility] [id number] [place] [address] 59457 -2738 Mar, Sore throat J02.9 ; Strep throat J02.0 and BMI 50.0-59.9, adult Z68.43 [place] [address] [place] [address] 36155- 8252 Mar, Leukocytosis, unspecified type D72.829 [facility] [id number] [id number] Mar, Acquired hypothyroidism E03.9 [place] [id number] [place] [address] 50584- 4780 Mar, Nausea R11.0 [place] [id number] [place] [address] 20895- 5790 Jan, [address] [address]- 6593 Jan, Acquired hypothyroidism E03.9 and Thyroid mass E07.[address] 00747- 8779 Dec, Acquired hypothyroidism E03.9 and Positive YULY (antinuclear antibody) R76.8 [place] [id number] [place] [address] 48596- 6766 Dec, Autoimmune thyroiditis E06.3 ; Other specified hypothyroidism E03.8 ; PCOS (polycystic ovarian syndrome) E28.2 and Arthralgia, unspecified joint M25.50 [place] [id number] [place] [address] 69180- 0447 Dec, Encounter for immunization Z23 [place] [id number] [place] [address] [id number] Dec, Other specified hypothyroidism E03.8 ; Autoimmune thyroiditis E06.3 ; PCOS (polycystic ovarian syndrome) E28.2 ; Arthralgia, unspecified joint M25.50 ; BMI 50.0-59.9, adult Z68.43 ; Thyroid nodule E04.1 ; Excessive daytime sleepiness G47.19 ; Snoring R06.83 and Gasping for breath R06.89 [place] [address] [place] [address] [id number]- 4738 May, [address] [id number] May, Acute suppurative otitis media of left ear without spontaneous rupture of tympanic membrane, recurrence not specified H66.002 and Cough R05 [address] [id number]- 0188 May, [address] [id number]- 7167 Apr, [facility] [address] [address] Apr, Viral URI J06.9 and BMI 50.0-59.9, adult Z68.[address] [id number] Apr, Bronchitis J40 ; Orthopnea R06.01 ; Shortness of breath R06.02 and BMI 50.0-59.9, adult Z68.[address] [id number] Apr, Bronchitis J40 and Flu-like symptoms R68.89 [facility] [address] [address] May, Sore throat J02.9 and Acute tonsillitis, unspecified etiology J03.[address] [id number] Apr, Insect bite (nonvenomous) of right elbow, initial encounter S50.361A and Bitten or stung by nonvenomous insect and other nonvenomous arthropods, initial encounter W57.XXXA [address] [id number] Mar, Acute recurrent frontal sinusitis J01.[address] 9[address]54- 9258 Dec, [facility] [address], [place] [address] 99[address] Dec, Cough R05 [facility] [id number] [place] [address] 54018- 7659 Dec, Cough R05 [facility] [id number] [place] [address] [id number] Dec, Bronchitis J40 [facility] [address] [id number] July, Sinusitis J32.9 [facility] [id number] [place] [address] [id number] May, Pharyngitis J02.9 [facility] [id number] [place] [address] 09683- 1349 Dec, Encounter for immunization Z23 [facility] [id number] [place] [address] 96576- 1939 Jul, [facility] [id number] [place] [address] 03648- 7746 Jul, [facility] [id number] [place] [address] 71112- 4241 May, [facility] [id number] [place] [address] 20318- 6223 May, [facility] [id number] [place] [address] 43699- 1789 Jan, [facility] [id number] [place] [address] 13202- 7230 Jan, [facility] [id number] [place] [address] 31624- 1179 Jan, [facility] [address] [place] [address] 68863- 5112 Jan, [facility] [id number] [place] [address] 23179- 4446 Jan, [facility] [address], [place] [address] 3[address] Jan, [facility] [address], [place] [address] 4[address] Jul, [facility] [id number], [place] [address] 3198 Jul, [facility] [address], [place] [address] 30[address] Dec, [facility] [address], [place] [address]- 7588 Dec, [facility] [address] [address] July, [facility] [address], [place] [address]- 48[address] Jul, [facility] [id number], [place] [address] 8[address] Apr, IMMUNIZATIONS No Known Immunizations SOCIAL HISTORY Never Assessed REASON FOR VISIT [facility] PLAN OF CARE VITAL SIGNS MEDICATIONS Medication Instructions Dosage Frequency Start Date End Date Duration Status Advair HFA 115-21 mcg/actuation 2 puffs by Inhalation route 2 times per day May, Active Flonase 50 mcg/actuation 1 sprays by Nasal route 2 times per day in each nostril May, Active Promethazine-Codeine 6.25-10 mg/5 mL 10 mL by Oral route every 6 hours for 7 day(s) Jul, Active PredniSONE 10 mg 1 Tablet 2 times per day for 5 days Take at 8 am and noon. Do not take after 3 pm Jul, Active PredniSONE 20 mg 3 tablet by Oral route 1 time per day for 5 day(s) Jul, Active Amoxicillin 500 mg 1 capsule by Oral route 3 times per day for 10 days Jan, Active RESULTS No Results PROCEDURES No Known procedures INSTRUCTIONS MEDICATIONS ADMINISTERED No Known Medications MEDICAL (GENERAL) HISTORY Type Description Date Medical History hypothyroid Medical History obesity Medical History PCOS Medical History seasonal allergies Medical History painful joints Medical History DEGRAFFENREID BELTRE,CALOS L 06/07/2018 9:56:34 AM > Dr Morgan, PN05/2018, Hashimotos- autoimmune hypothyroidism, US reviewed, FNA of right nodule scheduled, metabolic concerns discussed, will screen for angel. FU pending labs and FNA Surgical History D&C Hospitalization History No know Hospitalization history
--- OUTSIDE RECORDS SUMMARY | 2018-07-25 08:17 | XMS REPORT ---
Author Author SACHIN OVALLE [facility] Address [address] [place] [address] Care Team Providers Care Entry Writer Name Role Phone YAMILESACHIN QUESADA Unavailable PROBLEMS Type Condition ICD9-CM Code ONP21-HV Code Onset Dates Condition Status SNOMED Code Problem Excessive daytime sleepiness G47.19 Active 693227805097 Problem Autoimmune thyroiditis E06.3 Active 87227623 Problem Snoring R06.83 Active 85861281 Problem BMI 50.0-59.9, adult Z68.43 Active 703649795 Problem Acquired hypothyroidism E03.9 Active 949242674 Problem Leukocytosis, unspecified type D72.829 Active 360490820 Problem Arthralgia, unspecified joint M25.50 Active 65082843 Problem Thyroid nodule E04.1 Active 159996417 Problem Other specified hypothyroidism E03.8 Active 795311780 Problem Gasping for breath R06.89 Active 50255986 Problem PCOS (polycystic ovarian syndrome) E28.2 Active 77974266 ALLERGIES No Known Allergies ENCOUNTERS Encounter Location Date Diagnosis [facility] [id number], [place] [address] Mar, Acquired hypothyroidism E03.9 and Leukocytosis, unspecified type D72.829 [facility] [address] [id number], [place] [address] Mar, Sore throat J02.9 ; Strep throat J02.0 and BMI 50.0-59.9, adult Z68.43 [facility] [id number], [place] [address] Mar, Leukocytosis, unspecified type D72.829 [facility] [address] [id number] [id number] Mar, Acquired hypothyroidism E03.9 [place] [id number] [place] [address] 35986- 2169 Mar, Nausea R11.0 [place] [address] [address]65- 8670 Jan, [place] [address] 07216- 7363 Jan, Acquired hypothyroidism E03.9 and Thyroid mass E07.9 [place] [address] 97218- 3749 Dec, Acquired hypothyroidism E03.9 and Positive YULY (antinuclear antibody) R76.8 [place] [address] 46411- 6196 Dec, Autoimmune thyroiditis E06.3 ; Other specified hypothyroidism E03.8 ; PCOS (polycystic ovarian syndrome) E28.2 and Arthralgia, unspecified joint M25.50 [place] [address] 05622- 5777 Dec, Encounter for immunization Z23 [place] [address] [id number] Dec, Other specified hypothyroidism E03.8 ; Autoimmune thyroiditis E06.3 ; PCOS (polycystic ovarian syndrome) E28.2 ; Arthralgia, unspecified joint M25.50 ; BMI 50.0-59.9, adult Z68.43 ; Thyroid nodule E04.1 ; Excessive daytime sleepiness G47.19 ; Snoring R06.83 and Gasping for breath R06.89 [place] [id number] [place] [address] 06473- 5215 May, [place] [address] [id number] May, Acute suppurative otitis media of left ear without spontaneous rupture of tympanic membrane, recurrence not specified H66.002 and Cough R05 [place] [address] [address]- 0730 May, [facility] [address] 85258- 4531 Apr, [facility] [place] [address] [address] -6966 Apr, Viral URI J06.9 and BMI 50.0-59.9, adult Z68.43 [facility] [address] [id number] Apr, Bronchitis J40 ; Orthopnea R06.01 ; Shortness of breath R06.02 and BMI 50.0-59.9, adult Z68.43 [place] [address] [id number] Apr, Bronchitis J40 and Flu-like symptoms R68.89 [facility] [place] [address] [address] May, Sore throat J02.9 and Acute tonsillitis, unspecified etiology J03.90 [place] [address] [id number] Apr, Insect bite (nonvenomous) of right elbow, initial encounter S50.361A and Bitten or stung by nonvenomous insect and other nonvenomous arthropods, initial encounter W57.XXXA [place] [id number] [place] [address] [id number] Mar, Acute recurrent frontal sinusitis J01.11 [place] [address] 43048- 2458 Dec, [place] [address] 07700- 0109 Dec, Cough R05 [place] [address] 37987- 8554 Dec, Cough R05 [place] [address] [id number] Dec, Bronchitis J40 [facility] [id number] [place] [address] [id number] July, Sinusitis J32.9 [facility] [id number] [place] [address] [id number] May, Pharyngitis J02.9 [facility] [id number] [place] [address] 57784- 5127 Dec, Encounter for immunization Z23 [facility] [id number] [place] [address] 54073- 2373 Jul, [facility] [id number] [place] [address] 10599- 4512 Jul, [facility] [id number] [place] [address] 17924- 2874 May, [facility] [id number] [place] [address] 95876- 1930 May, [facility] [address] [place] [address] 75067- 0956 Jan, [facility] [id number] [place] [address] 81387- 6030 Jan, [facility] [address], [place] [address]- 7813 Jan, [facility] [address] [place] [address] 96532- 3998 Jan, [facility] [address] [place] [address] 68811- 6800 Jan, [facility] [id number] [place] [address] 12627- 5415 Jan, [facility] [address], [place] [address]- 6744 29 Jul, 2013 [facility] [id number] [place] [address] 59406- 2546 Jul, [facility] [address] [facility] [id number] [address]- 3006 Dec, [facility] [address] [facility] [id number], [place] [address]- 2546 Dec, [facility] [address] [facility] [id number], [place] [address]- 2546 July, [facility] [address] [facility] [id number], [place] [address]- 2546 Jul, [facility] [address] [facility] [id number], [place] [address]- 9426 Apr, IMMUNIZATIONS No Known Immunizations SOCIAL HISTORY Never Assessed REASON FOR VISIT Sore throat for 4 days. denies cough. [email or web address] PLAN OF CARE Activity Details Follow Up if not improving with PCP or reg follow up Reason: VITAL SIGNS Height 64 in 2018-03-22 Weight 340.2 lbs 2018-03-22 Temperature 98.6 degrees Fahrenheit 2018-03-22 Heart Rate 90 bpm 2018-03-22 Respiratory Rate 20 2018-03-22 BMI 58.39 kg/m2 2018-03-22 Blood pressure systolic 130 mmHg 2018-03-22 Blood pressure diastolic 78 mmHg 2018-03-22 MEDICATIONS Medication Instructions Dosage Frequency Start Date End Date Duration Status Amoxicillin 875 MG Orally every 12 hrs 1 tablet 12h Mar, 10 day (s) Active Zofran 8 MG Orally every 6 hrs as needed 1 tablet Mar, 3 days Active Levothyroxine Sodium 50 mcg Orally Once a day 1 tablet on an empty stomach in the morning 24h Dec, 45 days Active RESULTS No Results PROCEDURES Procedure Date Ordered Result Body Site STREP A ASSAY W/OPTIC Mar 22, 2018 INSTRUCTIONS MEDICATIONS ADMINISTERED No Known Medications MEDICAL (GENERAL) HISTORY Type Description Date Medical History hypothyroid Medical History obesity Medical History PCOS Medical History seasonal allergies Medical History painful joints Surgical History D&C Hospitalization History No know Hospitalization history
--- OUTSIDE RECORDS SUMMARY | 2018-07-25 08:18 | XMS REPORT ---
Author Author CALOS OVERTON Organization [facility] Address [address] [place] [address] Care Team Providers Care Assistant Professor Of German Name Role Phone CALOS OVERTON Unavailable PROBLEMS Type Condition ICD9-CM Code JRI34-HZ Code Onset Dates Condition Status SNOMED Code Problem Acquired hypothyroidism E03.9 Active 461710860 Problem Arthralgia, unspecified joint M25.50 Active 14167152 Problem Gasping for breath R06.89 Active 89783246 Problem BMI 50.0-59.9, adult Z68.43 Active 731406508 Problem Other specified hypothyroidism E03.8 Active 236310398 Problem Autoimmune thyroiditis E06.3 Active 60695524 Problem Thyroid nodule E04.1 Active 171589526 Problem Excessive daytime sleepiness G47.19 Active 291810508350 Problem Snoring R06.83 Active 92018761 Problem PCOS (polycystic ovarian syndrome) E28.2 Active 09419814 ALLERGIES No Information ENCOUNTERS Encounter Location Date Diagnosis [facility] [address] [place] [address]- 5594 Dec, Acquired hypothyroidism E03.9 and Positive YULY (antinuclear antibody) R76.8 [facility] [id number] [place] [address] 76303- 1634 Dec, Autoimmune thyroiditis E06.3 ; Other specified hypothyroidism E03.8 ; PCOS (polycystic ovarian syndrome) E28.2 and Arthralgia, unspecified joint M25.50 [facility] [address] [place] [address] 64644- 8191 Dec, Encounter for immunization Z23 [facility] [id number] [place] [address] [id number] Dec, Other specified hypothyroidism E03.8 ; Autoimmune thyroiditis E06.3 ; PCOS (polycystic ovarian syndrome) E28.2 ; Arthralgia, unspecified joint M25.50 ; BMI 50.0-59.9, adult Z68.43 ; Thyroid nodule E04.1 ; Excessive daytime sleepiness G47.19 ; Snoring R06.83 and Gasping for breath R06.[address] [address]- 3915 May, [address] [id number] May, Acute suppurative otitis media of left ear without spontaneous rupture of tympanic membrane, recurrence not specified H66.002 and Cough R05 [address] 11[address]- 6648 May, [address] [address]21- 4908 Apr, [facility] [address] [address] Apr, Viral URI J06.9 and BMI 50.0-59.9, adult Z68.[address] [id number] Apr, Bronchitis J40 ; Orthopnea R06.01 ; Shortness of breath R06.02 and BMI 50.0-59.9, adult Z68.[address] [id number] Apr, Bronchitis J40 and Flu-like symptoms R68.89 [facility] [address] [address] May, Sore throat J02.9 and Acute tonsillitis, unspecified etiology J03.[address] [id number] Apr, Insect bite (nonvenomous) of right elbow, initial encounter S50.361A and Bitten or stung by nonvenomous insect and other nonvenomous arthropods, initial encounter W57.XXXA [facility] [address] [id number] Mar, Acute recurrent frontal sinusitis J01.11 [facility] [address] 00063- 8152 Dec, [facility] [address] 59977- 0545 Dec, Cough R05 [facility] [address] 60129- 7656 Dec, Cough R05 [facility] [address] [id number] Dec, Bronchitis J40 [facility] [address] [id number] July, Sinusitis J32.9 [facility] [id number] [place] [address] [id number] May, Pharyngitis J02.9 [facility] [address] 88151- 0838 Dec, Encounter for immunization Z23 [facility] [id number] [place] [address] 01350- 6298 Jul, [facility] [id number] [place] [address] 34326- 7669 Jul, [facility] [id number] [place] [address] 19095- 7978 May, [facility] [address] 85328- 7846 May, [facility] [id number] [place] [address] 12318- 5214 Jan, [facility] [address] 38479- 2546 Jan, [facility] [address] [facility] [id number] [address]- 8161 Jan, [facility] [address] [facility] [id number], [place] [address]- 9266 Jan, [facility] [address] [facility] [id number]35[place]- 9186 Jan, [facility] [address] [facility] [id number], [place] [address]- 2712 Jan, [facility] [address] [facility] [id number] 197[place]- 8679 Jul, [facility] [address] [id number] 37[address] Jul, [facility] [address] [address] 6[address] Dec, [facility] [address], [place] [address]- 2150 Dec, [facility] [address] [id number], [place] [address]- 4183 July, [facility] [address], [place] [address]- 7284 Jul, [facility] [address] [id number], [place] [address]- 0967 Apr, IMMUNIZATIONS No Known Immunizations SOCIAL HISTORY Never Assessed REASON FOR VISIT Medication request PLAN OF CARE VITAL SIGNS MEDICATIONS Medication Instructions Dosage Frequency Start Date End Date Duration Status Levothyroxine Sodium 50 mcg Orally Once a day 1 tablet on an empty stomach in the morning 24h Dec, 45 days Active RESULTS No Results PROCEDURES No Known procedures INSTRUCTIONS MEDICATIONS ADMINISTERED No Known Medications MEDICAL (GENERAL) HISTORY Type Description Date Medical History hypothyroid Medical History obesity Medical History PCOS Medical History seasonal allergies Medical History painful joints Surgical History No know Surgical history Hospitalization History No know Hospitalization history
--- OUTSIDE RECORDS SUMMARY | 2018-07-25 08:18 | XMS REPORT ---
Author Author CALOS OVERTON Organization [facility] [place] Address [address] [place] [address] Care Team Providers Care Rn Hemo Dialysis Name Role Phone CALOS OVERTON Unavailable PROBLEMS Type Condition ICD9-CM Code ISQ06-QE Code Onset Dates Condition Status SNOMED Code Problem Acquired hypothyroidism E03.9 Active 335680149 Problem Arthralgia, unspecified joint M25.50 Active 61272640 Problem Gasping for breath R06.89 Active 15322612 Problem BMI 50.0-59.9, adult Z68.43 Active 447019904 Problem Other specified hypothyroidism E03.8 Active 783047805 Problem Autoimmune thyroiditis E06.3 Active 11984236 Problem Thyroid nodule E04.1 Active 735680455 Problem Excessive daytime sleepiness G47.19 Active 967434250158 Problem Snoring R06.83 Active 18720228 Problem PCOS (polycystic ovarian syndrome) E28.2 Active 81767632 ALLERGIES No Known Allergies ENCOUNTERS Encounter Location Date Diagnosis [facility] [address], [place] [address] Dec, Autoimmune thyroiditis E06.3 ; Other specified hypothyroidism E03.8 ; PCOS (polycystic ovarian syndrome) E28.2 and Arthralgia, unspecified joint M25.50 [facility] [id number] [id number] Dec, Other specified hypothyroidism E03.8 ; Autoimmune thyroiditis E06.3 ; PCOS (polycystic ovarian syndrome) E28.2 ; Arthralgia, unspecified joint M25.50 ; BMI 50.0-59.9, adult Z68.43 ; Thyroid nodule E04.1 ; Excessive daytime sleepiness G47.19 ; Snoring R06.83 and Gasping for breath R06.89 [facility] [address] [address] May, [place] [address] [id number] May, Acute suppurative otitis media of left ear without spontaneous rupture of tympanic membrane, recurrence not specified H66.[address] Cough R[address] 13758567- 5[address] May, [place] [address] [id number]- [address] Apr, [facility] [address] [id number] Apr, Viral URI J06.9 and BMI 50.0-59.9, adult Z68.[address] [id number] Apr, Bronchitis J40 ; Orthopnea R06.01 ; Shortness of breath R06.02 and BMI 50.0-59.9, adult Z68.[address] [id number] Apr, Bronchitis J40 and Flu-like symptoms R68.89 [facility] [place] [address] [address] May, Sore throat J02.9 and Acute tonsillitis, unspecified etiology J03.90 [place] [address] [id number] Apr, Insect bite (nonvenomous) of right elbow, initial encounter S50.361A and Bitten or stung by nonvenomous insect and other nonvenomous arthropods, initial encounter W57.XXXA [address] [id number] Mar, Acute recurrent frontal sinusitis J01.[address] [address] Dec, [facility] [address], [place] [address] Dec, Cough R05 [facility] [address] [id number] [place] [address] Dec, Cough R05 [facility] [id number] [place] [id number] Dec, Bronchitis J40 [facility] [id number] [place] [address] [id number] July, Sinusitis J32.9 [facility] [id number] [place] [address] [id number] May, Pharyngitis J02.9 [facility] [id number] [place] [address]- 4125 Dec, Encounter for immunization Z23 [facility] [address] [place] [address]- 8430 Jul, [facility] [address] [place] [address]25- 3594 Jul, [facility] [id number] [place] [address] 16410- 3196 May, [facility] [address], [place] [address] May, [facility] [address] [place] [address]36- 4289 Jan, [facility] [address], [place] [address] Jan, [facility] [address], [place] [address] Jan, [facility] [address], [place] [address] Jan, [facility] [id number], [place] [address] Jan, [facility] [id number], [place] [address] Jan, [facility] [address], [place] [address] Jul, [facility] [id number], [place] [address] Jul, [facility] [address], [place] [address] Dec, [facility] [address], [place] [address] Dec, [facility] [address], [place] [address] July, [facility] [address], [place] [address] Jul, [facility] [id number], [place] [address] Apr, IMMUNIZATIONS No Known Immunizations SOCIAL HISTORY Never Assessed REASON FOR VISIT thyroid concerns STeposte CCMA PLAN OF CARE Activity Details Follow Up 1 Months or as indicated by lab and pending tests Reason: Pending Test Ultrasound : Thyroid Future/Pending Procedure SLEEP STUDY (HOSPITAL) VITAL SIGNS Height 64 in 2018-01-22 Weight 312 lbs 2018-01-22 Temperature 97.2 degrees Fahrenheit 2018-01-22 Heart Rate 92 bpm 2018-01-22 Respiratory Rate 20 2018-01-22 BMI 53.55 kg/m2 2018-01-22 Blood pressure systolic 132 mmHg 2018-01-22 Blood pressure diastolic 80 mmHg 2018-01-22 MEDICATIONS Unknown Medications RESULTS No Results PROCEDURES No Known procedures INSTRUCTIONS MEDICATIONS ADMINISTERED No Known Medications MEDICAL (GENERAL) HISTORY Type Description Date Medical History hypothyroid Medical History obesity Medical History PCOS Medical History seasonal allergies Medical History painful joints Surgical History No know Surgical history Hospitalization History No know Hospitalization history
--- OUTSIDE RECORDS SUMMARY | 2018-07-25 08:18 | XMS REPORT ---
Author Author CALOS OVERTON Organization [facility] Address [address] [place] [address] Care Team Providers Care Housing Inspector Name Role Phone CALOS OVERTON Unavailable PROBLEMS Type Condition ICD9-CM Code KPD73-TR Code Onset Dates Condition Status SNOMED Code Problem Acquired hypothyroidism E03.9 Active 731082599 Problem Arthralgia, unspecified joint M25.50 Active 88254286 Problem Gasping for breath R06.89 Active 64540311 Problem BMI 50.0-59.9, adult Z68.43 Active 765814487 Problem Other specified hypothyroidism E03.8 Active 706097947 Problem Autoimmune thyroiditis E06.3 Active 46140163 Problem Thyroid nodule E04.1 Active 456811527 Problem Excessive daytime sleepiness G47.19 Active 009232897076 Problem Snoring R06.83 Active 24804366 Problem PCOS (polycystic ovarian syndrome) E28.2 Active 54079036 ALLERGIES No Information ENCOUNTERS Encounter Location Date Diagnosis [place] [address] [place] [address]- [address] Jan, [place] [address] [place] [id number] [place] [address]- [address] Jan, Acquired hypothyroidism E03.9 and Thyroid mass E07.9 [facility] [id number] [place] [address]- 8[address] Dec, Acquired hypothyroidism E03.9 and Positive YULY (antinuclear antibody) R76.8 [facility] [address] [id number] [place] [address]74- [address]83 Dec, Autoimmune thyroiditis E06.3 ; Other specified hypothyroidism E03.8 ; PCOS (polycystic ovarian syndrome) E28.2 and Arthralgia, unspecified joint M25.50 [place] [address] [address] Dec, Encounter for immunization Z23 [place] [address] [id number] Dec, Other specified hypothyroidism E03.8 ; Autoimmune thyroiditis E06.3 ; PCOS (polycystic ovarian syndrome) E28.2 ; Arthralgia, unspecified joint M25.50 ; BMI 50.0-59.9, adult Z68.43 ; Thyroid nodule E04.1 ; Excessive daytime sleepiness G47.19 ; Snoring R06.83 and Gasping for breath R06.89 [place] [address] [address] May, [place] [address] [id number] May, Acute suppurative otitis media of left ear without spontaneous rupture of tympanic membrane, recurrence not specified H66.002 and Cough R05 [place] [address] [address] May, [place] [address] [address] Apr, [facility] [place] [address] [address] Apr, Viral URI J06.9 and BMI 50.0-59.9, adult Z68.43 [place] [address] [id number] Apr, Bronchitis J40 ; Orthopnea R06.01 ; Shortness of breath R06.02 and BMI 50.0-59.9, adult Z68.43 [place] [address] [id number] Apr, Bronchitis J40 and Flu-like symptoms R68.89 [facility] [address] [address] May, Sore throat J02.9 and Acute tonsillitis, unspecified etiology J03.90 [facility] [id number] [place] [address] [id number] Apr, Insect bite (nonvenomous) of right elbow, initial encounter S50.361A and Bitten or stung by nonvenomous insect and other nonvenomous arthropods, initial encounter W57.XXXA [facility] [address] [id number] Mar, Acute recurrent frontal sinusitis J01.11 [facility] [address] 11153227- 6536 Dec, [facility] [address] 387054- 1838 Dec, Cough R05 [facility] [address] [address]- [address] Dec, Cough R05 [facility] [id number] [place] [address] [id number] Dec, Bronchitis J40 [facility] [address] [id number] July, Sinusitis J32.9 [facility] [id number] [place] [address] [id number] May, Pharyngitis J02.9 [facility] [address] [phone]- 8063 Dec, Encounter for immunization Z23 [facility] [address] [address]- [address] Jul, [facility] [address] 099197- 1423 Jul, [facility] [address] [id number] [place] [address] 126286- 5029 May, [facility] [address], [place] [address] May, [facility] [address], [place] [address] 9[address] Jan, [facility] [address], [place] [address] 289[address] Jan, [facility] [address], [place] [address] 34[address] Jan, [facility] [address], [place] [address]- 75[address] Jan, [facility] [address] [place] [address] 66693- 2881 Jan, [facility] [address], [place] [address] 49[address] Jan, [facility] [address], [place] [address]- 8[address] Jul, [facility] [address], [place] [address]- 488[address] Jul, [facility] [address], [place] [address] 77[address] Dec, [facility] [address], [place] [address] 79[address] Dec, [facility] [address], [place] [address] 6[address] July, [facility] [id number], [place] [address]- 0[address] Jul, [facility] [address], [place] [address] 5[address] Apr, IMMUNIZATIONS No Known Immunizations SOCIAL HISTORY Never Assessed REASON FOR VISIT Needs referral PLAN OF CARE VITAL SIGNS MEDICATIONS Unknown Medications RESULTS No Results PROCEDURES No Known procedures INSTRUCTIONS MEDICATIONS ADMINISTERED No Known Medications MEDICAL (GENERAL) HISTORY Type Description Date Medical History hypothyroid Medical History obesity Medical History PCOS Medical History seasonal allergies Medical History painful joints Surgical History No know Surgical history Hospitalization History No know Hospitalization history
--- OUTSIDE RECORDS SUMMARY | 2018-07-25 08:18 | XMS REPORT ---
Author Author JEWELL VAZQUEZ [facility] Address [address] [place] [address] Care Team Providers Care Supervisor [employer] Name Role Phone JEWELL VAZQUEZ Unavailable PROBLEMS Type Condition ICD9-CM Code ZDR79-DI Code Onset Dates Condition Status SNOMED Code Problem Acquired hypothyroidism E03.9 Active 689157673 Problem Arthralgia, unspecified joint M25.50 Active 81814499 Problem Gasping for breath R06.89 Active 48621625 Problem BMI 50.0-59.9, adult Z68.43 Active 991354211 Problem Other specified hypothyroidism E03.8 Active 887267354 Problem Autoimmune thyroiditis E06.3 Active 29797013 Problem Thyroid nodule E04.1 Active 386835604 Problem Excessive daytime sleepiness G47.19 Active 276622287911 Problem Snoring R06.83 Active 52676504 Problem PCOS (polycystic ovarian syndrome) E28.2 Active 54671769 ALLERGIES No Information ENCOUNTERS Encounter Location Date Diagnosis [facility] [address] [place] [address]67- [address]273 Dec, Acquired hypothyroidism E03.9 [facility] [address] [place] [address]391- 5413 Dec, Autoimmune thyroiditis E06.3 ; Other specified hypothyroidism E03.8 ; PCOS (polycystic ovarian syndrome) E28.2 and Arthralgia, unspecified joint M25.50 [facility] [address], [place] [address] Dec, Encounter for immunization Z23 [facility] [address] [place] [address] [id number] Dec, Other specified hypothyroidism E03.8 ; Autoimmune thyroiditis E06.3 ; PCOS (polycystic ovarian syndrome) E28.2 ; Arthralgia, unspecified joint M25.50 ; BMI 50.0-59.9, adult Z68.43 ; Thyroid nodule E04.1 ; Excessive daytime sleepiness G47.19 ; Snoring R06.83 and Gasping for breath R06.[address] 87538082- 5504 May, [address] [id number] May, Acute suppurative otitis media of left ear without spontaneous rupture of tympanic membrane, recurrence not specified H66.002 and Cough R05 [address] [address]- 4834 May, [address] [address]- [address]66 Apr, [facility] [place] [address] [address] Apr, Viral URI J06.9 and BMI 50.0-59.9, adult Z68.[address] [id number] Apr, Bronchitis J40 ; Orthopnea R06.01 ; Shortness of breath R06.02 and BMI 50.0-59.9, adult Z68.[address] [id number] Apr, Bronchitis J40 and Flu-like symptoms R68.89 [facility] [place] [address] [address] May, Sore throat J02.9 and Acute tonsillitis, unspecified etiology J03.[address] [id number] Apr, Insect bite (nonvenomous) of right elbow, initial encounter S50.361A and Bitten or stung by nonvenomous insect and other nonvenomous arthropods, initial encounter W57.XXXA [facility] [address] [id number] Mar, Acute recurrent frontal sinusitis J01.11 [facility] [address] [place] [id number] [place] [address] 925181- 2677 Dec, [facility] [address] [id number] [place] [address] 97935- 4383 Dec, Cough R05 [facility] [address] [place] [id number] [place] [address] 65750- 1001 Dec, Cough R05 [facility] [address] [id number] [place] [address] [id number] Dec, Bronchitis J40 [facility] [address] [id number] [place] [address] [id number] July, Sinusitis J32.9 [facility] [address] [id number] [place] [address] [phone] May, Pharyngitis J02.9 [facility] [address] [id number] [place] [address] 93595- 7454 Dec, Encounter for immunization Z23 [facility] [id number] [place] [address] 64732- 2845 Jul, [facility] [address] [place] [address] 10128- 2181 Jul, [facility] [address] [place] [address] 53038- 2159 May, [facility] [address] [place] [id number] [place] [address] 72725- 5744 May, [facility] [address] [place] [id number] [place] [address] 03434- 4649 Jan, [facility] [address] [place] [address] 55042- 1299 Jan, [facility] [address] [place] [address]- 3743 Jan, [facility] [address] [place] [id number], [place] [address]- 74[address] Jan, [facility] [address] [place] [id number], [place] [address]- 4[address] Jan, [facility] [address] [id number], [place] [address]- 0647 Jan, [facility] [address] [id number], [place] [address]- 6919 Jul, [facility] [address], [place] [address]- 6632 Jul, [facility] [address], [place] [address]- 7490 Dec, [facility] [address], [place] [address]- 8614 Dec, [facility] [id number], [place] [address]- 6984 July, [facility] [id number] Jul, [facility] [id number], [place] [address]- 2663 Apr, IMMUNIZATIONS Vaccine Route Administration Date Status FLULAVAL QUAD 0.5ML (6 MO & UP) 2018 IM Intramuscular Jan 22, 2018 Administered SOCIAL HISTORY Never Assessed REASON FOR VISIT FLU SHOT PLAN OF CARE VITAL SIGNS MEDICATIONS Unknown Medications RESULTS No Results PROCEDURES Procedure Date Ordered Result Body Site FLULAVAL QUAD 0.5ML (6 MO AND UP) 2018 Jan 22, 2018 SINGLE IMMUNIZATION ADMIN Jan 22, 2018 INSTRUCTIONS MEDICATIONS ADMINISTERED No Known Medications MEDICAL (GENERAL) HISTORY Type Description Date Medical History hypothyroid Medical History obesity Medical History PCOS Medical History seasonal allergies Medical History painful joints Surgical History No know Surgical history Hospitalization History No know Hospitalization history
--- OUTSIDE RECORDS SUMMARY | 2018-07-25 08:18 | XMS REPORT ---
Author Author CALOS OVERTON Organization [facility] Address [address] [place] [address] Care Team Providers Care Lock Technician Name Role Phone CALOS OVERTON Unavailable PROBLEMS Type Condition ICD9-CM Code QIU40-DH Code Onset Dates Condition Status SNOMED Code Problem Acquired hypothyroidism E03.9 Active 834365438 Problem Arthralgia, unspecified joint M25.50 Active 38851487 Problem Gasping for breath R06.89 Active 21933718 Problem BMI 50.0-59.9, adult Z68.43 Active 595420713 Problem Other specified hypothyroidism E03.8 Active 568300026 Problem Autoimmune thyroiditis E06.3 Active 46403195 Problem Thyroid nodule E04.1 Active 888852576 Problem Excessive daytime sleepiness G47.19 Active 518632780523 Problem Snoring R06.83 Active 95359794 Problem PCOS (polycystic ovarian syndrome) E28.2 Active 63058889 ALLERGIES No Information ENCOUNTERS Encounter Location Date Diagnosis [place] [address] [address] Jan, [place] [address] [place] [id number] [place] [address]- 4857 Jan, [place] [address] [place] [id number] [place] [address] 91166- 8199 Dec, Acquired hypothyroidism E03.9 and Positive YULY (antinuclear antibody) R76.8 [place] [address] [place] [id number] [place] [address] 0[address]10- 8309 Dec, Autoimmune thyroiditis E06.3 ; Other specified hypothyroidism E03.8 ; PCOS (polycystic ovarian syndrome) E28.2 and Arthralgia, unspecified joint M25.50 [place] [address] [address] Dec, Encounter for immunization Z23 [place] [address] [id number] Dec, Other specified hypothyroidism E03.8 ; Autoimmune thyroiditis E06.3 ; PCOS (polycystic ovarian syndrome) E28.2 ; Arthralgia, unspecified joint M25.50 ; BMI 50.0-59.9, adult Z68.43 ; Thyroid nodule E04.1 ; Excessive daytime sleepiness G47.19 ; Snoring R06.83 and Gasping for breath R06.[address] [address] May, [place] [address] [id number] May, Acute suppurative otitis media of left ear without spontaneous rupture of tympanic membrane, recurrence not specified H66.002 and Cough R05 [address] [address] 5097 May, [address] [address]- [address] Apr, [facility] [place] [address] [address] Apr, Viral URI J06.9 and BMI 50.0-59.9, adult Z68.43 [place] [address] [id number] Apr, Bronchitis J40 ; Orthopnea R06.01 ; Shortness of breath R06.02 and BMI 50.0-59.9, adult Z68.[address] [id number] Apr, Bronchitis J40 and Flu-like symptoms R68.89 [facility] [place] [address] [address] May, Sore throat J02.9 and Acute tonsillitis, unspecified etiology J03.90 [facility] [address] [id number] [place] [address] [id number] Apr, Insect bite (nonvenomous) of right elbow, initial encounter S50.361A and Bitten or stung by nonvenomous insect and other nonvenomous arthropods, initial encounter W57.XXXA [facility] [address] [id number] Mar, Acute recurrent frontal sinusitis J01.11 [facility] [address] 375547- 9599 Dec, [facility] [address] 929305- 0038 Dec, Cough R05 [facility] [address] 274573- 4271 Dec, Cough R05 [facility] [address] [id number] Dec, Bronchitis J40 [facility] [address] [id number] July, Sinusitis J32.9 [facility] [address] [id number] May, Pharyngitis J02.9 [facility] [address] 458320- 2846 Dec, Encounter for immunization Z23 [facility] [address] 95369- 4481 Jul, [facility] [address] [id number]- 0180 Jul, [facility] [address] [address]60- 4795 May, [facility] [address] 29755- 0020 May, [facility] [address], [place] [address] 6[address] Jan, [facility] [address] [facility] [id number] [address]31 Jan, [facility] [address], [place] [address] 6[address] Jan, [facility] [address] [facility] [id number] [address] Jan, [facility] [address], [place] [address] 82[address] Jan, [facility] [address] [address] [address] Jan, [facility] [address], [place] [address]- 0058 Jul, [facility] [address], [place] [address] 5166 Jul, [facility] [address], [place] [address]- 0043 Dec, [facility] [address], [place] [address] 6[address] Dec, [facility] [address] [place] [id number], [place] [address] 7[address] July, [facility] [address] [place] [address] [id number], [place] [address] 7[address] Jul, [facility] [address] [place] [id number], [place] [address]- 7508 Apr, IMMUNIZATIONS No Known Immunizations SOCIAL HISTORY Never Assessed REASON FOR VISIT Referral records PLAN OF CARE VITAL SIGNS MEDICATIONS Unknown Medications RESULTS No Results PROCEDURES No Known procedures INSTRUCTIONS MEDICATIONS ADMINISTERED No Known Medications MEDICAL (GENERAL) HISTORY Type Description Date Medical History hypothyroid Medical History obesity Medical History PCOS Medical History seasonal allergies Medical History painful joints Surgical History No know Surgical history Hospitalization History No know Hospitalization history
--- OUTSIDE RECORDS SUMMARY | 2018-07-25 08:18 | XMS REPORT ---
Author Author CALOS OVERTON Organization [facility] [place] [facility] Address [address] [place] [address] Care Team Providers Care Director Child Development Center Name Role Phone CALOS OVERTON Unavailable PROBLEMS Type Condition ICD9-CM Code FWM37-QH Code Onset Dates Condition Status SNOMED Code Problem Acquired hypothyroidism E03.9 Active 258971329 Problem Arthralgia, unspecified joint M25.50 Active 13171498 Problem Gasping for breath R06.89 Active 93632470 Problem BMI 50.0-59.9, adult Z68.43 Active 309677047 Problem Other specified hypothyroidism E03.8 Active 448934783 Problem Autoimmune thyroiditis E06.3 Active 19088787 Problem Thyroid nodule E04.1 Active 085063799 Problem Excessive daytime sleepiness G47.19 Active 754759948583 Problem Snoring R06.83 Active 80176465 Problem PCOS (polycystic ovarian syndrome) E28.2 Active 67572557 ALLERGIES No Information ENCOUNTERS Encounter Location Date Diagnosis [facility] [id number] [place] [address] [id number] Mar, Acquired hypothyroidism E03.9 [place] [address] [place] [address] 8[address]65- 8562 Mar, Nausea R11.0 [facility] [address] [place] [address] 92286- 7912 Jan, [place] [address] [place] [id number] [place] [address] 83682- 8039 Jan, Acquired hypothyroidism E03.9 and Thyroid mass E07.9 [facility] [address] [place] [address] 09128- 7557 Dec, Acquired hypothyroidism E03.9 and Positive YULY (antinuclear antibody) R76.8 [place] [address] 8[address]- 7748 Dec, Autoimmune thyroiditis E06.3 ; Other specified hypothyroidism E03.8 ; PCOS (polycystic ovarian syndrome) E28.2 and Arthralgia, unspecified joint M25.50 [facility] [address] [address]- 7588 Dec, Encounter for immunization Z23 [facility] [address] [id number] Dec, Other specified hypothyroidism E03.8 ; Autoimmune thyroiditis E06.3 ; PCOS (polycystic ovarian syndrome) E28.2 ; Arthralgia, unspecified joint M25.50 ; BMI 50.0-59.9, adult Z68.43 ; Thyroid nodule E04.1 ; Excessive daytime sleepiness G47.19 ; Snoring R06.83 and Gasping for breath R06.89 [place] [address] [address]- [address] May, [place] [address] [id number] May, Acute suppurative otitis media of left ear without spontaneous rupture of tympanic membrane, recurrence not specified H66.002 and Cough R05 [place] [address] [address]- 9697 May, [facility] [address] 6[address]- 2902 Apr, [facility] [address] [address] -[address]79 Apr, Viral URI J06.9 and BMI 50.0-59.9, adult Z68.43 [facility] [address] [id number] Apr, Bronchitis J40 ; Orthopnea R06.01 ; Shortness of breath R06.02 and BMI 50.0-59.9, adult Z68.43 [facility] [address] [id number] Apr, Bronchitis J40 and Flu-like symptoms R68.89 [facility] [address] [id number] -6596 May, Sore throat J02.9 and Acute tonsillitis, unspecified etiology J03.90 [facility] [address] [id number] Apr, Insect bite (nonvenomous) of right elbow, initial encounter S50.361A and Bitten or stung by nonvenomous insect and other nonvenomous arthropods, initial encounter W57.XXXA [facility] [address] [id number] Mar, Acute recurrent frontal sinusitis J01.11 [facility] [address] 66908075- 2393 Dec, [facility] [address] 73735- 9122 Dec, Cough R05 [facility] [address] 80850- 2138 Dec, Cough R05 [facility] [address] [id number] Dec, Bronchitis J40 [facility] [address] [id number] July, Sinusitis J32.9 [facility] [address] [id number] May, Pharyngitis J02.9 [facility] [address] 12490496- 2803 Dec, Encounter for immunization Z23 [facility] [address] 28392- 5952 Jul, [facility] [place] [facility] [address] [id number] [place] [address]- 8121 Jul, [facility] [place] [facility] [address] [id number] [place] [address]- 9703 May, [facility] [place] [facility] [address] [id number] [place] [address]- 5325 May, [facility] [place] [facility] [address] [id number] [place] [address]- 5990 Jan, [facility] [place] [facility] [address] [id number] [place] [address]- 4434 Jan, [facility] [place] [facility] [address] [id number] [place] [address]- 2789 Jan, [facility] [place] [facility] [address] [id number] [place] [address]- 4050 Jan, [facility] [place] [facility] [address] [id number] [place] [address]- 8252 Jan, [facility] [place] [facility] [address] [id number] [place] [address]- 4663 Jan, [facility] [place] [facility] [address] [id number] [place] [address]- 7262 Jul, [facility] [place] [facility] [address] [id number] [place] [address]- 4397 Jul, [facility] [place] [facility] [address] [id number] [place] [address]- 9865 Dec, [facility] [place] [facility] [address] [id number] [place] [address]- 9334 Dec, [facility] [place] [facility] [address] [id number] [place] [address]- 6146 July, [facility] [place] [facility] [address] [id number] [place] [address]- 4279 Jul, [facility] [place] [facility] [address] [id number] [address]- 1616 Apr, IMMUNIZATIONS No Known Immunizations SOCIAL HISTORY Never Assessed REASON FOR VISIT fu lab PLAN OF CARE VITAL SIGNS MEDICATIONS Unknown Medications RESULTS No Results PROCEDURES No Known procedures INSTRUCTIONS MEDICATIONS ADMINISTERED No Known Medications MEDICAL (GENERAL) HISTORY Type Description Date Medical History hypothyroid Medical History obesity Medical History PCOS Medical History seasonal allergies Medical History painful joints Surgical History No know Surgical history Hospitalization History No know Hospitalization history
--- OUTSIDE RECORDS SUMMARY | 2018-07-25 08:19 | XMS REPORT ---
Author Author SARAHI Krishnamurthy [facility] Address [address] [place] [address] Care Team Providers Care Relocation Associate Name Role Phone SARAHI Krishnamurthy Unavailable PROBLEMS Type Condition ICD9-CM Code CTJ62-VK Code Onset Dates Condition Status SNOMED Code Problem Acquired hypothyroidism E03.9 Active 113811289 Problem Bronchitis J40 Active 66701672 Problem BMI 50.0-59.9, adult Z68.43 Active 574027811 ALLERGIES No Information ENCOUNTERS Encounter Location Date Diagnosis [facility] [address] [address]- [address] May, [facility] [place] [address] [id number] May, Acute suppurative otitis media of left ear without spontaneous rupture of tympanic membrane, recurrence not specified H66.002 and Cough R05 [facility] [address] [address]- [address]46 May, [facility] [address] [address]- 0420 Apr, [facility] [address] [address] Apr, Viral URI J06.9 and BMI 50.0-59.9, adult Z68.43 [facility] [place] [address] [id number] Apr, Bronchitis J40 ; Orthopnea R06.01 ; Shortness of breath R06.02 and BMI 50.0-59.9, adult Z68.43 [facility] [place] [address] [id number] Apr, Bronchitis J40 and Flu-like symptoms R68.89 [facility] [address] [place] [id number] [place] [address] 41135219 -5887 May, Sore throat J02.9 and Acute tonsillitis, unspecified etiology J03.90 [facility] [place] [address] [id number] Apr, Insect bite (nonvenomous) of right elbow, initial encounter S50.361A and Bitten or stung by nonvenomous insect and other nonvenomous arthropods, initial encounter W57.XXXA [facility] [place] [address] [id number] Mar, Acute recurrent frontal sinusitis J01.11 [facility] [address] 66423899- 4132 Dec, [facility] [address] [address]- 4534 Dec, Cough R05 [facility] [address] 6[address]- 8413 Dec, Cough R05 [facility] [place] [address] [id number] Dec, Bronchitis J40 [facility] [place] [address] [id number] July, Sinusitis J32.9 [facility] [place] [address] [id number] May, Pharyngitis J02.9 [facility] [address] 63408- 3264 Dec, Encounter for immunization Z23 [facility] [address] [id number]- 2870 14 Jul, 2014 [facility] [address] [address]- [address] Jul, [facility] [address] [id number] [place] [address] May, [facility] [address] [id number] [place] [address]- 1995 May, [facility] [address] [facility] [id number] [place] [address]- [address] Jan, [facility] [address] [id number] [place] [address]- 3584 Jan, [facility] [address] [facility] [id number] [place] [address]- 4240 Jan, [facility] [address] [facility] [id number] [place] [address]- 3775 Jan, [facility] [address] [facility] [id number] [place] [address]- 1120 Jan, [facility] [address] [facility] [id number], [place] [address]- [address] Jan, [facility] [address] [facility] [id number] [place] [address]- 7[address] Jul, [facility] [address] [facility] [id number], [place] [address]- 8409 Jul, [facility] [address] [facility] [id number], [place] [address]- 8281 Dec, [facility] [address] [facility] [id number], [place] [address]- [address]207 Dec, [facility] [address] [facility] [id number], [place] [address]- [address] July, [facility] [address] [facility] [id number], [place] [address]- 7849 Jul, [facility] [address] [facility] [id number], [place] [address]- 6463 Apr, IMMUNIZATIONS No Known Immunizations SOCIAL HISTORY Never Assessed REASON FOR VISIT review of ER records PLAN OF CARE VITAL SIGNS MEDICATIONS Unknown Medications RESULTS No Results PROCEDURES No Known procedures INSTRUCTIONS MEDICATIONS ADMINISTERED No Known Medications MEDICAL (GENERAL) HISTORY Type Description Date Medical History hypothyroid Medical History obesity
--- OUTSIDE RECORDS SUMMARY | 2018-07-25 08:19 | XMS REPORT ---
Author Author CALOS OVERTON Organization [facility] Address [address] [place] [address] Care Team Providers Care Plush Weaver Name Role Phone CALOS OVERTON Unavailable PROBLEMS Type Condition ICD9-CM Code TJJ71-KH Code Onset Dates Condition Status SNOMED Code Problem Acquired hypothyroidism E03.9 Active 741512205 Problem Arthralgia, unspecified joint M25.50 Active 16900454 Problem Gasping for breath R06.89 Active 83412104 Problem BMI 50.0-59.9, adult Z68.43 Active 757681436 Problem Other specified hypothyroidism E03.8 Active 499566636 Problem Autoimmune thyroiditis E06.3 Active 16331051 Problem Thyroid nodule E04.1 Active 267699439 Problem Excessive daytime sleepiness G47.19 Active 610474109473 Problem Snoring R06.83 Active 67875101 Problem PCOS (polycystic ovarian syndrome) E28.2 Active 00549629 ALLERGIES No Information ENCOUNTERS Encounter Location Date Diagnosis [facility] [address] [address] [id number] [address]- [address] Dec, Autoimmune thyroiditis E06.3 ; Other specified hypothyroidism E03.8 ; PCOS (polycystic ovarian syndrome) E28.2 and Arthralgia, unspecified joint M25.50 [facility] [address] [place] [id number] [id number] Dec, Other specified hypothyroidism E03.8 ; Autoimmune thyroiditis E06.3 ; PCOS (polycystic ovarian syndrome) E28.2 ; Arthralgia, unspecified joint M25.50 ; BMI 50.0-59.9, adult Z68.43 ; Thyroid nodule E04.1 ; Excessive daytime sleepiness G47.19 ; Snoring R06.83 and Gasping for breath R06.89 [facility] [address] 10125195- 1090 May, [address] [id number] May, Acute suppurative otitis media of left ear without spontaneous rupture of tympanic membrane, recurrence not specified H66.002 and Cough R05 [address] 44665572- 3264 May, [place] [address] 02555037- 3733 Apr, [facility] [address] 85435437 -2257 Apr, Viral URI J06.9 and BMI 50.0-59.9, adult Z68.[address] [id number] Apr, Bronchitis J40 ; Orthopnea R06.01 ; Shortness of breath R06.02 and BMI 50.0-59.9, adult Z68.[address] [id number] Apr, Bronchitis J40 and Flu-like symptoms R68.89 [facility] [place] [address] [address] May, Sore throat J02.9 and Acute tonsillitis, unspecified etiology J03.[address] [id number] Apr, Insect bite (nonvenomous) of right elbow, initial encounter S50.361A and Bitten or stung by nonvenomous insect and other nonvenomous arthropods, initial encounter W57.XXXA [address] [id number] Mar, Acute recurrent frontal sinusitis J01.[address] [address]- 2757 Dec, [facility] [address]65[address], [place] [address]- 8476 Dec, Cough R05 [facility] [address] [place] [id number] [place] [address]51- 8036 Dec, Cough R05 [facility] [address] [place] [address] [id number] [place] [address] [id number] Dec, Bronchitis J40 [facility] [address] [place] [id number] [place] [address] [id number] July, Sinusitis J32.9 [facility] [address] [id number] [place] [address] [id number] May, Pharyngitis J02.9 [facility] [address] [id number] [place] [address] 30602- 1246 Dec, Encounter for immunization Z23 [facility] [id number] [place] [address] 55948- 8538 Jul, [facility] [id number] [place] [address] 31680- 5929 Jul, [facility] [address] [id number] [place] [address] 06250- 7651 May, [facility] [address]65[address], [place] [address]- 5509 May, [facility] [address] [place] [address] 38070- 5073 Jan, [facility] [address], [place] [address]- 3643 Jan, [facility] [id number] [place] [address] 41150- 9617 Jan, [facility] [address], [place] [address]- 8407 Jan, [facility] [address] [place] [address] [place] [address]- 6258 Jan, [facility] [id number] [address] Jan, [facility] [address] [facility] [id number], [place] [address]- 0769 Jul, [facility] [address] [id number] 2210 Jul, [facility] [id number] [address] 2100 Dec, [facility] [id number] 3710 Dec, [facility] [address]- [address] July, [facility] [address] [address] [id number] 277[address] Jul, [facility] [address] [facility] [id number], [place] [address]- 2260 Apr, IMMUNIZATIONS No Known Immunizations SOCIAL HISTORY Never Assessed REASON FOR VISIT Lab (walk-in) PLAN OF CARE Activity Details Pending Test LIPID PANEL Pending Test CMP Pending Test CBC Pending Test RA (RHEUMATOID) FACTOR Pending Test YULY ANALYZER Pending Test THYROID ANALYZER VITAL SIGNS MEDICATIONS Unknown Medications RESULTS No Results PROCEDURES Procedure Date Ordered Result Body Site LIPID PANEL Jan 22, 2018 COMPREHEN METABOLIC PANEL Jan 22, 2018 VENIPUNCT, ROUTINE* Jan 22, 2018 RHEUMATOID FACTOR, QUANT Jan 22, 2018 COMPLETE CBC W/AUTO DIFF WBC Jan 22, 2018 ASSAY THYROID STIM HORMONE Jan 22, 2018 ANTINUCLEAR ANTIBODIES Jan 22, 2018 INSTRUCTIONS MEDICATIONS ADMINISTERED No Known Medications MEDICAL (GENERAL) HISTORY Type Description Date Medical History hypothyroid Medical History obesity Medical History PCOS Medical History seasonal allergies Medical History painful joints Surgical History No know Surgical history Hospitalization History No know Hospitalization history
--- OUTSIDE RECORDS SUMMARY | 2018-07-25 08:19 | XMS REPORT ---
Author Author SARAHI Krishnamurthy [facility] Address [address] [place] [address] Care Team Providers Care Bulb Sorter Name Role Phone SARAHI Krishnamurthy Unavailable PROBLEMS Type Condition ICD9-CM Code TNV62-ZD Code Onset Dates Condition Status SNOMED Code Problem Acquired hypothyroidism E03.9 Active 593928879 Problem Bronchitis J40 Active 58680711 Problem BMI 50.0-59.9, adult Z68.43 Active 120755467 ALLERGIES No Information ENCOUNTERS Encounter Location Date Diagnosis [facility] [address] [address] May, [facility] [address] [id number] May, Acute suppurative otitis media of left ear without spontaneous rupture of tympanic membrane, recurrence not specified H66.002 and Cough R05 [facility] [address] [address] May, [facility] [address] [address] Apr, [facility] [address] [address] Apr, Viral URI J06.9 and BMI 50.0-59.9, adult Z68.43 [facility] [address] [id number] Apr, Bronchitis J40 ; Orthopnea R06.01 ; Shortness of breath R06.02 and BMI 50.0-59.9, adult Z68.43 [facility] [place] [address] [id number] Apr, Bronchitis J40 and Flu-like symptoms R68.89 [facility] IN [facility] [id number] [place] [address] [id number] -[address] May, Sore throat J02.9 and Acute tonsillitis, unspecified etiology J03.90 [facility] [address] [id number] Apr, Insect bite (nonvenomous) of right elbow, initial encounter S50.361A and Bitten or stung by nonvenomous insect and other nonvenomous arthropods, initial encounter W57.XXXA [facility] [address] [id number] Mar, Acute recurrent frontal sinusitis J01.11 [facility] [address] 19361033- [address] Dec, [facility] [address] [address] Dec, Cough R05 [facility] [address] [address] Dec, Cough R05 [facility] [address] [id number] Dec, Bronchitis J40 [facility] [address] [id number] July, Sinusitis J32.9 [facility] [address] [id number] May, Pharyngitis J02.9 [facility] [address] [address] Dec, Encounter for immunization Z23 [facility] [address] [id number]- [address] 14 Jul, 2014 [facility] [address] [address] Jul, [facility] [address] [id number] [place] [address] May, [facility] [address] [id number] [place] [address] May, [facility] [address] [facility] [id number] [place] [address] Jan, [facility] [address] [id number], [place] [address] Jan, [facility] [address] [id number] [place] [address] Jan, [facility] [address] [facility] [id number] [place] [address] Jan, [facility] [address] [facility] [id number] [place] [address] 97[address] Jan, [facility] [address] [facility] [id number], [place] [address] Jan, [facility] [address] [facility] [id number], [place] [address] Jul, [facility] [address] [facility] [id number], [place] [address] Jul, [facility] [address] [facility] [id number], [place] [address] Dec, [facility] [address] [facility] [id number], [place] [address] Dec, [facility] [address] [facility] [id number], [place] [address] July, [facility] [address] [facility] [id number], [place] [address] Jul, [facility] [address] [facility] [id number], [place] [address] Apr, IMMUNIZATIONS No Known Immunizations SOCIAL HISTORY Never Assessed REASON FOR VISIT daughter with influenza PLAN OF CARE VITAL SIGNS MEDICATIONS Medication Instructions Dosage Frequency Start Date End Date Duration Status Tamiflu 75 MG Orally once daily 1 capsule 24h Apr, 10 days Active RESULTS No Results PROCEDURES No Known procedures INSTRUCTIONS MEDICATIONS ADMINISTERED No Known Medications MEDICAL (GENERAL) HISTORY Type Description Date Medical History hypothyroid Medical History obesity
--- OUTSIDE RECORDS SUMMARY | 2018-07-25 08:19 | XMS REPORT ---
Author Author DANI SHAW Organization [facility] Address [address] [place] [address] Care Team Providers Care Sheet Rock Applier Name Role Phone DANI SHAW Unavailable PROBLEMS Type Condition ICD9-CM Code ZOE26-UP Code Onset Dates Condition Status SNOMED Code Problem Acquired hypothyroidism E03.9 Active 262010562 Problem Bronchitis J40 Active 67509007 Problem BMI 50.0-59.9, adult Z68.43 Active 786378720 ALLERGIES No Known Allergies ENCOUNTERS Encounter Location Date Diagnosis [facility] [address] [address] May, [facility] [address] [id number] May, Acute suppurative otitis media of left ear without spontaneous rupture of tympanic membrane, recurrence not specified H66.002 and Cough R05 [facility] [address] [address] 05 May, 2017 [facility] [address] [address] Apr, [facility] [address] [address] Apr, Viral URI J06.9 and BMI 50.0-59.9, adult Z68.43 [facility] [address] [id number] Apr, Bronchitis J40 ; Orthopnea R06.01 ; Shortness of breath R06.02 and BMI 50.0-59.9, adult Z68.43 [facility] [address] [id number] Apr, Bronchitis J40 and Flu-like symptoms R68.[address] [facility] [id number] [place] [address] May, Sore throat J02.9 and Acute tonsillitis, unspecified etiology J03.90 [facility] [address] [id number] Apr, Insect bite (nonvenomous) of right elbow, initial encounter S50.361A and Bitten or stung by nonvenomous insect and other nonvenomous arthropods, initial encounter W57.XXXA [facility] [address] [id number] Mar, Acute recurrent frontal sinusitis J01.11 [facility] [address] [address] Dec, [facility] [address] [address] Dec, Cough R05 [facility] [address] [address] Dec, Cough R05 [facility] [address] [id number] Dec, Bronchitis J40 [facility] [address] [id number] July, Sinusitis J32.9 [facility] [address] [id number] May, Pharyngitis J02.9 [facility] [address] [address] Dec, Encounter for immunization Z23 [facility] [address] [address] 14 Jul, 2014 [facility] [address] [address] Jul, [facility] [address] [facility] [id number] [place] [address] May, [facility] [address] [facility] [id number] [place] [address] May, [facility] [address] [facility] [id number] [place] [address] Jan, [facility] [address] [facility] [id number] [place] [address] Jan, [facility] [address] [facility] [id number] [place] Jan, [facility] [address] [facility] [id number] [place] [address] Jan, [facility] [address] [id number] [place] [address] Jan, [facility] [address] [id number], [place] [address] Jan, [facility] [address] [id number], [place] [address] Jul, [facility] [address] [id number], [place] [address] Jul, [facility] [address] [id number], [place] [address] Dec, [facility] [address] [facility] [id number], [place] [address] 94[address] Dec, [facility] [address] [facility] [id number], [place] [address] July, [facility] [address] [facility] [id number], [place] [address] Jul, [facility] [address] [facility] [id number], [place] [address] Apr, IMMUNIZATIONS Vaccine Route Administration Date Status TORADOL (IM) 60 MG/2ML (UP TO 15 MG) IM Intramuscular Apr 27, 2017 Administered SOCIAL HISTORY Never Assessed REASON FOR VISIT migraine, cough Pt states she has had a migraine for three days, is on prednisone and albuterol PHILIP Kelly PLAN OF CARE Activity Details Follow Up prn Reason: VITAL SIGNS Height 64 in 2017-04-27 Weight 334.4 lbs 2017-04-27 Temperature 97.7 degrees Fahrenheit 2017-04-27 Heart Rate 94 bpm 2017-04-27 Respiratory Rate 24 2017-04-27 BMI 57.39 kg/m2 2017-04-27 Blood pressure systolic 124 mmHg 2017-04-27 Blood pressure diastolic 96 mmHg 2017-04-27 MEDICATIONS Medication Instructions Dosage Frequency Start Date End Date Duration Status Levothyroxine Sodium Active PredniSONE 20 mg Orally Once a day with food 3 tablet x 3 days, 2 tabs x 3 days, then 1 tab x 2 days Apr, Apr, 8 days Active Albuterol Sulfate (2.5 MG/3ML) 0.083% Inhalation 4 times a day 3 ml as needed 6h Apr, 10 days Active Flonase Allergy Relief 50 MCG/ACT Nasally twice a day 1 spray in each nostril 12h July, 30 day(s) Not-Taking Metformin HCl Active Flonase Allergy Relief 50 MCG/ACT Nasally twice a day 1 spray in each nostril 12h Mar, 30 day(s) Not-Taking Spironolactone Active Benzonatate 200 MG Orally Three times a day 1 capsule 8h Apr, May, 7 days Active RESULTS No Results PROCEDURES Procedure Date Ordered Result Body Site TORADOL (IM) 60 MG/2ML (UP TO 15 MG) Apr 27, 2017 THER/PROPH/DIAG INJ, SC/IM Apr 27, 2017 INSTRUCTIONS MEDICATIONS ADMINISTERED No Known Medications MEDICAL (GENERAL) HISTORY Type Description Date Medical History hypothyroid Medical History obesity
--- OUTSIDE RECORDS SUMMARY | 2018-07-25 08:19 | XMS REPORT ---
Author Author SARAHI Krishnamurthy [facility]BI[facility] VAN Address [address] [place] [address] Care Team Providers Care Medical Lead Name Role Phone SARAHI Krishnamurthy Unavailable PROBLEMS Type Condition ICD9-CM Code RZA75-NB Code Onset Dates Condition Status SNOMED Code Problem Acquired hypothyroidism E03.9 Active 705112016 Problem Bronchitis J40 Active 10154510 Problem BMI 50.0-59.9, adult Z68.43 Active 039281101 ALLERGIES No Known Allergies ENCOUNTERS Encounter Location Date Diagnosis [facility] [address] [address] May, [facility] [address] [id number] May, Acute suppurative otitis media of left ear without spontaneous rupture of tympanic membrane, recurrence not specified H66.002 and Cough R05 [facility] [address] [address] May, [facility] [address] [address] Apr, [facility] [address] [address] Apr, Viral URI J06.9 and BMI 50.0-59.9, adult Z68.43 [facility] [address] [id number] Apr, Bronchitis J40 ; Orthopnea R06.01 ; Shortness of breath R06.02 and BMI 50.0-59.9, adult Z68.43 [facility] [place] [address] [id number] Apr, Bronchitis J40 and Flu-like symptoms R68.89 [facility] [id number] [place] [id number] [address] May, Sore throat J02.9 and Acute tonsillitis, unspecified etiology J03.90 [facility] [address] [id number] Apr, Insect bite (nonvenomous) of right elbow, initial encounter S50.361A and Bitten or stung by nonvenomous insect and other nonvenomous arthropods, initial encounter W57.XXXA [facility] [address] [id number] Mar, Acute recurrent frontal sinusitis J01.11 [facility] [address] [id number]- [address] Dec, [facility] [address] [address] Dec, Cough R05 [facility] [address] [address] Dec, Cough R05 [facility] [address] [id number] Dec, Bronchitis J40 [facility] [address] [id number] July, Sinusitis J32.9 [facility] [address] [id number] May, Pharyngitis J02.9 [facility] [address] [address] Dec, Encounter for immunization Z23 [facility] [address] [id number]- [address] 14 Jul, 2014 [facility] [address] [address] Jul, [facility] [address] [facility] [id number] [place] [address]- 9[address] May, [facility] [address] [facility] [id number] [place] [address]- [address] May, [facility] [address] [id number] [address] Jan, [facility] [address] [facility] [id number], [place] [address] Jan, [facility] [address] [facility] [id number] [place] [address]- 6[address] Jan, [facility] [address] [facility] [id number] [place] [address]- 1734 Jan, [facility] [address]65[address] [place] [address] 8[address] Jan, [facility] [address]00565100[place], [place] [address] Jan, [facility] [address]00565100[place], [place] [address] Jul, [facility] [address]65100[place], [place] [address] Jul, [facility] [address]00565100[place], [place] [address] 8[address] Dec, [facility] [address] [facility] [id number], [place] [address] Dec, [facility] [address] [id number], [place] [address] July, [facility] [address]65[address], [place] [address] Jul, [facility] [address] [id number], [place] [address] Apr, IMMUNIZATIONS No Known Immunizations SOCIAL HISTORY Never Assessed REASON FOR VISIT cough/congestion [place] PLAN OF CARE Activity Details Follow Up prn Reason: VITAL SIGNS Height 64 in 2017-05-25 Weight 334 lbs 2017-05-25 Temperature 98.8 degrees Fahrenheit 2017-05-25 Heart Rate 88 bpm 2017-05-25 Respiratory Rate 22 2017-05-25 BMI 57.32 kg/m2 2017-05-25 Blood pressure systolic 126 mmHg 2017-05-25 Blood pressure diastolic 77 mmHg 2017-05-25 MEDICATIONS Medication Instructions Dosage Frequency Start Date End Date Duration Status Cefdinir 300 MG Orally every 12 hrs 1 capsule 12h May, May, 14 days Active Albuterol Sulfate (2.5 MG/3ML) 0.083% Inhalation 4 times a day 3 ml as needed 6h Apr, 10 days Active Diflucan 150 MG Orally take day 5, 10, and 15 1 tablet May, May, 14 days Active Benzonatate 200 MG Orally Three times a day prn cough 1 capsule 10 days Active Levothyroxine Sodium Active Metformin HCl Active Flonase Allergy Relief 50 MCG/ACT Nasally twice a day 1 spray in each nostril 12h Mar, 30 day(s) Not-Taking Flonase Allergy Relief 50 MCG/ACT Nasally twice a day 1 spray in each nostril 12h July, 30 day(s) Not-Taking Spironolactone Active RESULTS No Results PROCEDURES No Known procedures INSTRUCTIONS MEDICATIONS ADMINISTERED No Known Medications MEDICAL (GENERAL) HISTORY Type Description Date Medical History hypothyroid Medical History obesity
--- OUTSIDE RECORDS SUMMARY | 2018-07-25 08:19 | XMS REPORT ---
Author Author MANJIT HAN Organization [facility] Address [address] [place] [address] Care Team Providers Care Cardiac Catheterization Technician Name Role Phone MANJIT HAN Unavailable PROBLEMS Type Condition ICD9-CM Code XTW53-NQ Code Onset Dates Condition Status SNOMED Code Problem Acquired hypothyroidism E03.9 Active 387182204 Problem Bronchitis J40 Active 70148800 Problem BMI 50.0-59.9, adult Z68.43 Active 425273063 ALLERGIES No Known Allergies ENCOUNTERS Encounter Location Date Diagnosis [facility] [address] [address] May, [facility] [address] [id number] May, Acute suppurative otitis media of left ear without spontaneous rupture of tympanic membrane, recurrence not specified H66.002 and Cough R05 [facility] [address] [address] May, [facility] [id number] [place] [address] Apr, [facility] [address] [address] Apr, Viral URI J06.9 and BMI 50.0-59.9, adult Z68.43 [facility] [address] [id number] Apr, Bronchitis J40 ; Orthopnea R06.01 ; Shortness of breath R06.02 and BMI 50.0-59.9, adult Z68.43 [facility] [address] [id number] Apr, Bronchitis J40 and Flu-like symptoms R68.89 [facility] [id number] [place] [phone] -[address]99 May, Sore throat J02.9 and Acute tonsillitis, unspecified etiology J03.90 [facility] [address] [id number] Apr, Insect bite (nonvenomous) of right elbow, initial encounter S50.361A and Bitten or stung by nonvenomous insect and other nonvenomous arthropods, initial encounter W57.XXXA [facility] [address] [id number] Mar, Acute recurrent frontal sinusitis J01.11 [facility] [address] [id number]- [address] Dec, [facility] [address] [address] Dec, Cough R05 [facility] [address] [address] Dec, Cough R05 [facility] [address] [id number] Dec, Bronchitis J40 [facility] [address] [id number] July, Sinusitis J32.9 [facility] [address] [id number] May, Pharyngitis J02.9 [facility] [address] [address] Dec, Encounter for immunization Z23 [facility] [address] [address] 14 Jul, 2014 [facility] [address] [address] Jul, [facility] [address] [facility] [id number] [place] [address] May, [facility] [address] [id number] [place] May, [facility] [address] [facility] [id number] [place] [address] Jan, [facility] [address] [id number] [place] [address]- 57[address] Jan, [facility] [address] [facility] [id number] [place] [address] Jan, [facility] [address] [facility] [id number] [place] [address]- 1439 Jan, [facility] [address] [facility] [id number] [place] [address]- 4[address] Jan, [facility] [address] [facility] [id number] [place] [address]- 8[address] Jan, [facility] [address] [facility] [id number] [place] [address]- [address] Jul, [facility] [address] [facility] [id number], [place] [address] Jul, [facility] [address] [facility] [id number], [place] [address] Dec, [facility] [address] [facility] [id number], [place] [address]- 69[address] Dec, [facility] [address] [facility] [id number], [place] [address]- [address] July, [facility] [address] [facility] [id number], [place] [address]- [address] Jul, [facility] [address] [facility] [id number], [place] [address]- [address] Apr, IMMUNIZATIONS Vaccine Route Administration Date Status DEPO MEDROL 80 MG/ML IM Intramuscular Apr 13, 2017 Administered SOCIAL HISTORY Never Assessed REASON FOR VISIT chest congestion-Edgar [place] PLAN OF CARE Activity Details Follow Up prn Reason: VITAL SIGNS Height 64 in 2017-04-13 Weight 341 lbs 2017-04-13 Temperature 97.5 degrees Fahrenheit 2017-04-13 Heart Rate 95 bpm 2017-04-13 Respiratory Rate 20 2017-04-13 BMI 58.53 kg/m2 2017-04-13 Blood pressure systolic 123 mmHg 2017-04-13 Blood pressure diastolic 75 mmHg 2017-04-13 MEDICATIONS Medication Instructions Dosage Frequency Start Date End Date Duration Status Metformin HCl Not-Taking Flonase Allergy Relief 50 MCG/ACT Nasally twice a day 1 spray in each nostril 12h Mar, 30 day(s) Not-Taking Flonase Allergy Relief 50 MCG/ACT Nasally twice a day 1 spray in each nostril 12h July, 30 day(s) Not-Taking Levothyroxine Sodium Not-Taking Spironolactone Not-Taking RESULTS Name Result Date Reference Range INFLUENZA A & B (IN HOUSE) 2017-04-13 INFLUENZA A Negative INFLUENZA B Negative Control + Lot # [id number] Exp date 05/30/2018 PROCEDURES Procedure Date Ordered Result Body Site INFLUENZA ASSAY W/OPTIC Apr 13, 2017 THER/PROPH/DIAG INJ, SC/IM Apr 13, 2017 DEPO MEDROL 80 MG/ML Apr 13, 2017 INSTRUCTIONS MEDICATIONS ADMINISTERED No Known Medications MEDICAL (GENERAL) HISTORY Type Description Date Medical History hypothyroid Medical History obesity
--- OUTSIDE RECORDS SUMMARY | 2018-07-25 08:20 | XMS REPORT | Continuity of Care Document ---
Author Organization Unknown Address Unknown Allergies Active Description Code Type Severity Reaction Onset Reported/Identified Relationship to Patient Clinical Status Yes No Known Drug Allergies [id number] Drug Allergy Unknown N/A 12/01/2009 Medications There is no data. Problems Date Dx Coded Attending Type Code Diagnosis Diagnosed By 03/17/2011 Ot 631.8 OTHER ABNORMAL PRODUCTS OF CONCEPTION 04/12/2012 V04.81 FLU DX (3 YRS AND ABOVE, IM) 04/12/2012 V04.81 FLU DX (3 YRS AND ABOVE, IM) 04/12/2012 V04.81 FLU DX (3 YRS AND ABOVE, IM) 04/12/2012 RAJOTTE MIXING TUMBLER OPERATOR, SARAHI A V04.81 FLU DX (3 YRS AND ABOVE, IM) 04/12/2012 RAJOTTE MIXING TUMBLER OPERATOR, SARAHI A V04.81 FLU DX (3 YRS AND ABOVE, IM) 04/12/2012 RAJOTTE MIXING TUMBLER OPERATOR, SARAHI A V04.81 FLU DX (3 YRS AND ABOVE, IM) 04/12/2012 RAJOTTE MIXING TUMBLER OPERATOR, SARAHI A V04.81 FLU DX (3 YRS AND ABOVE, IM) 07/30/2012 466.0 BRONCHITIS, ACUTE 07/30/2012 786.05 SHORTNESS OF BREATH 07/30/2012 786.2 COUGH 07/30/2012 466.0 BRONCHITIS, ACUTE 07/30/2012 786.05 SHORTNESS OF BREATH 07/30/2012 786.2 COUGH 07/30/2012 RAJOTTE MIXING TUMBLER OPERATOR, SARAHI A 466.0 BRONCHITIS, ACUTE 07/30/2012 RAJOTTE MIXING TUMBLER OPERATOR, SARAHI A 786.05 SHORTNESS OF BREATH 07/30/2012 RAJOTTE MIXING TUMBLER OPERATOR, SARAHI A 786.2 COUGH 07/30/2012 RAJOTTE MIXING TUMBLER OPERATOR, SARAHI A 466.0 BRONCHITIS, ACUTE 07/30/2012 RAJOTTE MIXING TUMBLER OPERATOR, SARAHI A 786.05 SHORTNESS OF BREATH 07/30/2012 RAJOTTE MIXING TUMBLER OPERATOR, SARAHI A 786.2 COUGH 07/30/2012 RAJOTTE MIXING TUMBLER OPERATOR, SARAHI A 466.0 BRONCHITIS, ACUTE 07/30/2012 RAJOTTE MIXING TUMBLER OPERATOR, SARAHI A 786.05 SHORTNESS OF BREATH 07/30/2012 RAJOTTE MIXING TUMBLER OPERATOR, SARAHI A 786.2 COUGH 07/30/2012 RAJOTTE MIXING TUMBLER OPERATOR, SARAHI A 466.0 BRONCHITIS, ACUTE 07/30/2012 RAJOTTE MIXING TUMBLER OPERATOR, SARAHI A 786.05 SHORTNESS OF BREATH 07/30/2012 RAJOTTE MIXING TUMBLER OPERATOR, SARAHI A 786.2 COUGH 08/02/2012 461.0 SINUSITIS, ACUTE MAXILLARY 08/02/2012 RAJOTTE MIXING TUMBLER OPERATOR, SARAHI A 461.0 SINUSITIS, ACUTE MAXILLARY 08/02/2012 RAJOTTE MIXING TUMBLER OPERATOR, SARAHI A 461.0 SINUSITIS, ACUTE MAXILLARY 08/02/2012 RAJOTTE MIXING TUMBLER OPERATOR, SARAHI A 461.0 SINUSITIS, ACUTE MAXILLARY 08/02/2012 RAJOTTE MIXING TUMBLER OPERATOR, SARAHI A 461.0 SINUSITIS, ACUTE MAXILLARY 02/09/2014 RAJOTTE MIXING TUMBLER OPERATOR, SARAHI A 462 PHARYNGITIS ACUTE 02/09/2014 RAJOTTE MIXING TUMBLER OPERATOR, SARAHI A 463 TONSILLITIS ACUTE 02/09/2014 RAJOTTE MIXING TUMBLER OPERATOR, SARAHI A 462 PHARYNGITIS ACUTE 02/09/2014 RAJOTTE MIXING TUMBLER OPERATOR, SARAHI A 463 TONSILLITIS ACUTE 06/25/2014 Ot [...] IVANNA MICHELE DO Ot E06.3 AUTOIMMUNE THYROIDITIS 05/09/2017 ALBERTO SMITH APRN Ot J40 BRONCHITIS, NOT SPECIFIED ACUTE OR CH 05/09/2017 ALBERTO SMITH APRN Ot R05 COUGH 05/09/2017 ALBERTO SMITH APRN Ot Z87.448 PERSONAL HISTORY OF OTHER DISEASES OF UR 05/09/2017 FERNY WATT, KHURRAM A Ot 241.0 NONTOX UNINODULAR GOITER 05/09/2017 GELLENDER DO, KHURRAM A Ot 241.0 NONTOX UNINODULAR GOITER 05/09/2017 Ot 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 05/09/2017 Ot 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35-4.94 Serum or plasma thyroxine (T4) free measurement (mass/volume) - 05/09/17 13:24 Serum or plasma thyroxine (T4) free measurement (mass/volume) 0.77 ng/dL 0.70-1.48 Complete blood count (CBC) with automated white blood cell (WBC) differential - 05/09/17 13:34 Blood leukocytes automated count (number/volume) 7.8 10*3/uL 4.3-11.0 Blood erythrocytes automated count (number/volume) 4.79 10*6/uL 4.35-5.85 Venous blood hemoglobin measurement (mass/volume) 13.4 g/dL 11.5-16.0 Blood hematocrit (volume fraction) 41 % 35-52 Automated erythrocyte mean corpuscular volume 85 [foz_us] 80-99 Automated erythrocyte mean corpuscular hemoglobin (mass per erythrocyte) 28 pg 25-34 Automated erythrocyte mean corpuscular hemoglobin concentration measurement ( mass/volume) 33 g/dL 32-36 Automated erythrocyte distribution width ratio 14.4 % 10.0-14.5 Automated blood platelet count (count/volume) 294 10*3/uL 130-400 Automated blood platelet mean volume measurement 10.1 [foz_us] 7.4-10.4 Automated blood neutrophils/100 leukocytes 53 % 42-75 Automated blood lymphocytes/100 leukocytes 34 % 12-44 Blood monocytes/100 leukocytes 12 % 0-12 Automated blood eosinophils/100 leukocytes 1 % 0-10 Automated blood basophils/100 leukocytes 0 % 0-10 Blood neutrophils automated count (number/volume) 4.1 10*3 1.8-7.8 Blood lymphocytes automated count (number/volume) 2.7 10*3 1.0-4.0 Blood monocytes automated count (number/volume) 0.9 10*3 0.0-1.0 Automated eosinophil count 0.1 10*3/uL 0.0-0.3 Automated blood basophil count (count/volume) 0.0 10*3/uL 0.0-0.1 Fibrin D-dimer FEU measurement in platelet poor plasma (mass/volume) - 13:34 Fibrin D-dimer FEU measurement in platelet poor plasma (mass/volume) 0.55 ug/mL 0.00-0.49 Serum or plasma choriogonadotropin ( test) detection - 05/09/17 13:34 Serum or plasma choriogonadotropin ( test) detection NEGATIVE NEGATIVE Comprehensive metabolic panel - 05/09/17 13:34 Serum or plasma sodium measurement (moles/volume) 136 mmol/L 135-145 Serum or plasma potassium measurement (moles/volume) 4.0 mmol/L 3.6-5.0 Serum or plasma chloride measurement (moles/volume) 102 mmol/L 98-107 Carbon dioxide 22 mmol/L 21-32 Serum or plasma anion gap determination (moles/volume) 12 mmol/L 5-14 Serum or plasma urea nitrogen measurement (mass/volume) 20 mg/dL 7-18 Serum or plasma creatinine measurement (mass/volume) 0.84 mg/dL 0.60-1.30 Serum or plasma urea nitrogen/creatinine mass ratio 24 NRG Serum or plasma creatinine measurement with calculation of estimated glomerular filtration rate > NRG Serum or plasma glucose measurement (mass/volume) 140 mg/dL 70-105 Serum or plasma calcium measurement (mass/volume) 8.6 mg/dL 8.5-10.1 Serum or plasma total bilirubin measurement (mass/volume) 0.2 mg/dL 0.1-1.0 Serum or plasma alkaline phosphatase measurement (enzymatic activity/volume) 99 U/L 40-136 Serum or plasma aspartate aminotransferase measurement (enzymatic activity/ volume) 17 U/L 5-34 Serum or plasma alanine aminotransferase measurement (enzymatic activity/volume ) 17 U/L 0-55 Serum or plasma protein measurement (mass/volume) 7.1 g/dL 6.4-8.2 Serum or plasma albumin measurement (mass/volume) 3.6 g/dL 3.2-4.5 Serum or plasma lithium measurement (moles/volume) - 05/09/17 13:34 BNP level 11.9 pg/mL <100.0 Encounters ACCT No. Visit Date/Time Discharge Status Pt. Type Provider Facility Loc./Unit Complaint [id number] 02/11/2014 08:37:00 02/11/2014 23:59:59 [facility] Outpatient GRZEGORZMonse SARAHI SAMUELS [id number] 02/09/2014 08:57:00 02/09/2014 23:59:59 [facility] Outpatient GRZEGORZMonse SARAHI SAMUELS [id number] 07/29/2013 10:48:00 07/29/2013 23:59:59 [facility] Outpatient SARAHI GÓMEZ APRN [id number] 01/27/2013 09:35:00 01/27/2013 23:59:59 [facility] Outpatient GRZEGORZMonse SARAHI SAMUELS [id number] 04/16/2012 12:08:00 04/16/2012 23:59:59 [facility] Outpatient [id number] 08/02/2012 15:35:00 Document Registration [id number] 07/30/2012 08:21:00 Document Registration [id number] 04/16/2012 13:10:33 RECURRING [id number] 01/31/2018 10:51:00 01/31/2018 23:59:59 [facility] Outpatient CALOS BLACKMON [facility] RAD THYROID NODULE [id number] 05/09/2017 13:23:00 05/09/2017 15:56:00 DIS Emergency ALBERTO SMITH APRN [facility] ER COUGH,DIZZY,SHAKEY [id number] 05/06/2015 08:07:00 05/06/2015 23:59:59 [facility] Outpatient IVANNA MICHELE DO [facility] LAB HASHIMOTOS THYROIDITIS [id number] 04/29/2013 08:52:00 04/29/2013 23:59:59 [facility] Outpatient KHURRAM ISAACS DO [facility] RAD THY NODULE [id number] 04/15/2013 10:04:00 04/15/2013 23:59:59 CLS Outpatient KHURRAM ISAACS DO [facility] RAD THY NODULE [id number] 07/25/2018 08:11:00 ACT Emergency YEFRI GRADY MD [facility] ER BACK PAIN [id number] 10/04/2015 05:53:00 Document Registration [id number] 06/17/2014 11:18:00 Document Registration [id number] 06/08/2014 15:45:00 Document Registration [id number] 03/17/2011 05:30:00 Document Registration [id number] 03/16/2011 09:53:00 Document Registration [id number] 10/12/2010 09:57:00 Document Registration [id number] 08/16/2010 15:26:00 Document Registration
--- NOTE | 2018-07-25 08:50 | ED Back Pain ---
General Chief Complaint: Back Problems Stated Complaint: BACK PAIN Nursing Triage Note: AMB TO ROOM C/O LOW BACK PAIN NO INJURY. IS BEING TX FOR URI REPORTS IS UNABLE TO TAKE STEROIDS DUE TO HAVING A THYROID SURG SOON,. Nursing Sepsis Screen: No Definite Risk Source of Information: Patient Exam Limitations: No Limitations History of Present Illness Date Seen by Provider: Jul 25, 2018 Time Seen by Provider: 08:25 Initial Comments This 37-year-old woman who presents to the emergency room with complaint of "my back is angry" with symptoms starting yesterday. Pain is in her lower back in the central lumbar region and is exacerbated with any movement. She was unable to get out of bed for a while this morning. She denies any exacerbating factor or acute injury. 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 Pain is sharp and sometimes feels spasmodic. She denies any radicular symptoms or bowel or bladder dysfunction. She has no leg weakness. She took Tylenol this morning without benefit. She drove herself to the ER this morning. She denies and has an IUD. She has a papillary carcinoma of the thyroid and is scheduled for thyroidectomy August 29. He has nausea associated with pain. Allergies and Home Medications Allergies Coded Allergies: No Known Drug Allergies (Unverified , 12/01/09) Home Medications Cyclobenzaprine HCl 10 Mg Tablet, 10 MG PO TID PRN for SPASMS Prescribed by: YEFRI CANO on 07/25/18 09 Hydrocodone Bit/Acetaminophen 1 Tab Tablet, 1-2 TAB PO q3hrs PRN, (Reported) for pain Hydrocodone/Acetaminophen 1 Each Tablet, 1-2 TAB PO Q6H PRN for PAIN-MODERATE TO SEVERE Prescribed by: YEFRI CANO on 07/25/18 09 Levothyroxine Sodium 100 Mcg Tablet, 1 EACH PO DAILY, (Reported) Metoprolol Succinate 50 Mg Tab.er.24h, 50 MG PO DAILY Prescribed by: ALBERTO SMITH on 05/09/17 151 Prednisone 20 Mg Tab, 1 TAB PO DAILY Prescribed by: YEFRI CANO on 07/25/18 0904 Vits W-Ca,Fe,Fa(<1MG) 1 Each Tablet, 1 EACH PO DAILY, (Reported) Promethazine HCl/Codeine 118 Ml Syrup, 5 ML PO Q6H PRN for COUGH Prescribed by: ALBERTO SMITH on 05/09/17 1513 Patient Home Medication List Home Medication List Reviewed: Yes Review of Systems Constitutional: no symptoms reported EENTM: no symptoms reported Respiratory: no symptoms reported Cardiovascular: no symptoms reported Gastrointestinal: see HPI Genitourinary: no symptoms reported Musculoskeletal: see HPI Skin: no symptoms reported Psychiatric/Neurological: No Symptoms Reported Past Kptdvhm-Smdwfu-Zbpyaa Hx Past Med/Social Hx: Reviewed and Corrections made Patient Social History Alcohol Use: Occasionally Uses Recreational Drug Use: No Smoking Status: Never a Smoker Recent Foreign Travel: No Contact w/Someone Who Travel: No Recent Infectious Disease Expo: No Past Medical History Surgeries: Yes (D&C) Respiratory: No Cardiac: Yes (HEART MUMMUR) Neurological: Yes (STROKE IN HER RIGHT EYE AFTER A BOUT WITH MENINGITIS) Reproductive Disorders: Yes ("POLYCYSTIC OVARIES") DENTAL TECHNOLOGIST History: IUD Sexually Transmitted Disease: Yes (HERPES) Gastrointestinal: No Musculoskeletal: No Endocrine: Yes (Candido's thyroiditis, papillary carcinoma of the thyroid) Cancer: Yes Thyroid Did You Recieve Any Treatments: No Psychosocial: No Blood Disorders: No Physical Exam Vital Signs Vital Signs - First Documented 07/25/18 08:14 Temp 96.1 Pulse 69 Resp 18 B/P (MAP) 161/114 (130) Pulse Ox 100 O2 Delivery Room Air Capillary Refill : Less Than 3 Seconds Height, Weight, BMI Height: 5'4.00" Weight: 340lbs. oz. 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 Work note provided. Patient was concerned about taking steroids close to surgery, but her surgery is more than a month away. A brief course of steroid therapy was felt safe at this point. Departure Impression Primary Impression: Low back pain Qualified Codes: M54.5 - Low back pain Disposition: 01 HOME, SELF-CARE Condition: Improved Departure-Patient Inst. Decision time for Depature: 08:48 [place]: [facility] [place] Primary Care Physician Patient Instructions: Low Back Pain (DC) Add. Discharge Instructions: You may continue using Tylenol (acetaminophen) up to 1000 mg every 6 hours as needed for more mild pain. For more severe pain, use hydrocodone as prescribed. If tolerated, you may use NSAID medications such as ibuprofen or naproxen for short-term relief. Gentle heat to your lower back with heating pad on a low setting, warm baths, warm shower, etc. may also be helpful to relax her muscles. Start your prednisone prescription tomorrow. Take with food or milk early in the day to avoid stomach irritation or sleep disturbance. Follow-up with your primary care provider if pain has not resolved in the next couple of days. Return to emergency room if you have worsening symptoms, especially if you develop weakness of her legs, numbness or tingling of the legs, or bowel or bladder dysfunction. For long-term prevention of back pain, work toward weight loss and core muscle strength conditioning. Avoid strenuous activity, especially bending or lifting , until pain resolves. All discharge instructions reviewed with patient and/or family. Voiced understanding. Scripts Prednisone (Prednisone) 20 Mg Tab 1 TAB PO DAILY, #3 TAB Prov: YEFRI GRADY MD 07/25/18 Hydrocodone/Acetaminophen (Hydrocodone-Acetamin 5-325 mg) 1 Each Tablet 1-2 TAB PO Q6H PRN for PAIN-MODERATE TO SEVERE, #10 TAB Prov: YEFRI GRADY MD 07/25/18 Cyclobenzaprine HCl (Cyclobenzaprine HCl) 10 Mg Tablet 10 MG PO TID PRN for SPASMS, #10 TAB Prov: YEFRI GRADY MD 07/25/18 Work/School Note: Work Release Form Date Seen in the Emergency Department: Jul 25, 2018 Return to Work: Jul 29, 2018 Other Restrictions Listed Below: No heavy lifting, bending, or straining until pain resolves Copy Copies To 1: JEWELL VAZQUEZ JOSHUA T MD Jul 25, 2018 08:50
[2018-07-25] MEDS: predniSONE 20 MG TAB PO ONE (08:53)
[2018-07-25] MEDS: KETOROLAC 30 MG/ML VIAL IM ONE (08:53)
[2018-07-25] MEDS ORDERED: CYCL10TA9 PO (09:04)
[2018-07-25] MEDS ORDERED: PRD20T PO (09:04)
[2018-07-25] MEDS ORDERED: HYDR-3812 PO (09:04)
[2018-07-25 09:13] VITALS: BP 120/93
== END 2018-07-25 09:13 | disposition home or self-care (01) ==
LOC: EDUNIT# 08:10 → ER 08:11
DX: M54.5 Low back pain (principal); E06.3 Autoimmune thyroiditis; Z85.850 Personal history of malignant neoplasm of thyroid; Z97.5 Presence of (intrauterine) contraceptive device; Z79.52 Long term (current) use of systemic steroids; Z98.890 Other specified postprocedural states; Z86.19 Personal history of other infectious and parasitic diseases
CPT/HCPCS: 99284

== ENCOUNTER → 2019-12-01 | Outpatient (CLI) | payer BC ==
[~2019-12-01] MED LIST changes: +ACHD5005 PO; +CYCL10TA9 PO; -METO-370 PO; +METO50TA7 PO; +PRD20T PO
== END ==
LOC: CARD 11:11
PROVIDERS: ATTEND Internal Medicine Cardiovascular Disease
DX: I11.9 Hypertensive heart disease without heart failure (principal); E07.9 Disorder of thyroid, unspecified
CPT/HCPCS: 93306

== ENCOUNTER → 2019-12-10 | Outpatient (CLI) | payer BC ==
[~2019-12-10] VITALS: Ht 165 cm; Wt 165.0 kg
[~2019-12-10] MED LIST changes: +CATHETER FLUSH 10 ML SYR IV PRN
[2019-12-10 09:27] VITALS: BP 159/98
--- NOTE | 2019-12-10 14:13 | Cardiology Stress Test Report ---
Stress Test Report Date of Procedure/Referring: Date of Procedure: Dec 10, 2019 PCP Shelbie Lucero MD Admitting Physician [facility] Indications: Hypertension Baseline Heart Rate: 74 Baseline Blood Pressure: Blood Pressure Systolic: 159 Blood Pressure Diastolic: 98 Vital Signs Date Time Temp Pulse Resp B/P (MAP) Pulse Ox O2 Delivery O2 Flow Rate FiO2 12/10/19 09:27 96 18 159/98 (118) 97 Room Air Baseline Vital Signs Vital Signs Date Time Temp Pulse Resp B/P (MAP) Pulse Ox O2 Delivery O2 Flow Rate FiO2 12/10/19 09:27 96 18 159/98 (118) 97 Room Air Baseline EKG: Baseline EKG: normal sinus rhythm Summary: After explaining the procedure and details to the patient, she signed the consent and was brought to the stress nuclear laboratory. Patient exercised on standard Curtis protocol, EKG, heart rate and blood pressure were monitored continuously, resting and stress doses of radio tracer were injected, imaging was acquired and reviewed in the short axis, horizontal long axis and vertical long axis views Patient was able to exercise for a total of [3:30 ] minutes on Curtis protocol, METs 5.2 Maximum heart rate 166 Maximum blood pressure 173/79 Stress EKG, Minimal nondiagnostic changes Recovery EKG, Return to baseline TID: 164 SSS: 22 SDS: 1 EF: 60 Conclusion: 1. Poor exercise tolerance for total of 3 minutes and 30 seconds on Curtis protocol achieving 92 percent of maximum expected heart rate 2. Appropriate heart rate and blood pressure response to exercise returned to baseline during recovery 3. Animal nondiagnostic EKG changes with exercise returned to baseline during recovery 4. Extracardiac attenuation with breast attenuation and fixed defect involving the whole anterior wall, anterior septum and anterolateral wall 5. Transient ischemic dilatation with value of 1.64 suggestive of multivessel disease 6. Normal left ventricular size EF 60 percent SHELBIE LUCERO MD Dec 10, 2019 14:13
== END ==
LOC: CARD 08:09
PROVIDERS: ATTEND Internal Medicine Cardiovascular Disease
DX: I11.9 Hypertensive heart disease without heart failure (principal); E07.9 Disorder of thyroid, unspecified
CPT/HCPCS: 78452; 93017; A9502

== ENCOUNTER → 2019-12-15 | Outpatient (CLI) | payer BC ==
[~2019-12-15] MED LIST changes: +ACET500S IV; -CATHETER FLUSH 10 ML SYR IV PRN; +DULO30CA3 PO; +LEVONORGESTREL; +MIRENA IUD
--- NOTE | 2019-12-15 09:07 | Diagnostic Imaging Report ---
INDICATION: Elevated liver enzymes. PROCEDURE: Ultrasound abdomen complete. TECHNIQUE: Multiple real-time grayscale images were obtained of the abdomen in various projections. COMPARISON: None. FINDINGS: The liver is enlarged and demonstrates generalized increased echogenicity. There are no focal lesions. No intra or extrahepatic biliary dilatation is present. The common bile duct is nondilated and measures 0.5 cm. There is no evidence of cholelithiasis or gallbladder wall thickening or pericholecystic fluid. Sonographic Pinto's sign is negative. The pancreas is obscured due to overlying bowel gas. Both kidneys are normal in size and echogenicity. The cortical thickness and the corticomedullary differentiation is well maintained. The right kidney measures 12.5 cm. The left kidney measures 11.8 cm. There is no evidence of calculi, focal mass or hydronephrosis. The spleen is not enlarged. The visualized upper aorta and IVC are normal in course and caliber. There is no ascites in the upper abdomen. IMPRESSION: 1. Hepatomegaly with hepatic steatosis. No focal hepatic lesions are seen. 2. No evidence of cholelithiasis or acute cholecystitis. Dictated by: Dictated on workstation # [id number]
== END ==
LOC: RAD 08:30
PROVIDERS: ATTEND Nurse Practitioner Family
DX: K76.0 Fatty (change of) liver, not elsewhere classified (principal); R74.8 Abnormal levels of other serum enzymes
CPT/HCPCS: 76700

== ENCOUNTER 2019-12-17 09:00 | Day surgery (SDC) | payer BC ==
[2019-12-17] VITALS (9 sets, daily range): BP systolic 150–168; BP diastolic 80–92
[~2019-12-17] VITALS: Ht 165 cm; Wt 161.0 kg
[2019-12-17 07:30] LABS: HEMOGLOBIN 12.9 G/DL (11.5-16.0); MEAN PLATELET VOLUME 10.1 FL (7.4-10.4)
[2019-12-17 07:45] LABS: PROTHROMBIN TIME PATIENT 13.2 SEC (12.2-14.7)
[2019-12-17 07:52] LABS: ALANINE AMINOTRANSFERASE 34 U/L (0-55); ALBUMIN 4.4 GM/DL (3.2-4.5); ALKALINE PHOSPHATASE 74 U/L (40-136); BILIRUBIN,TOTAL 0.3 MG/DL (0.1-1.0); BUN/CREATININE RATIO 25; CALCIUM 9.7 MG/DL (8.5-10.1); CARBON DIOXIDE 21 MMOL/L (21-32); CHLORIDE 104 MMOL/L (98-107); CHOLESTEROL 189 MG/DL (< 200); CREATININE SERUM 0.77 MG/DL (0.60-1.30); GFR ESTIMATED > 60; GLUCOSE 120 MG/DL (70-105); HDL CHOLESTEROL 35 MG/DL (40-60); POTASSIUM 3.9 MMOL/L (3.6-5.0); SODIUM 138 MMOL/L (135-145); TOTAL PROTEIN 8.1 GM/DL (6.4-8.2); TRIGLYCERIDES 123 MG/DL (<150); VLDL CHOLESTEROL 25 MG/DL (5-40)
--- NOTE | 2019-12-17 07:56 | Diagnostic Imaging Report ---
HISTORY: Preoperative evaluation of cardiac and pulmonary structures prior to administration of anesthesia. COMPARISON: 05/09/2017 TECHNIQUE: Frontal view chest FINDINGS: Lung volumes are normal. Interstitial markings appear mildly increased at the lung bases, right more than left. The cardiac silhouette is within normal limits on this AP view. No pleural effusion or pneumothorax is seen. IMPRESSION: 1. Mildly increased basilar interstitial markings, may represent a mild edema. Dictated by: Dictated on workstation # [id number]
[~2019-12-17 09:00] MED LIST changes: +HEParin (CATH LAB) 2,000 ML IV ONE; +HEParin 1000 UNIT/ML (10ML VIAL) FOR BOLUS ONE; +LIDOCAINE 1% INJ 20 ML 20 ML VIAL ONE; +MIDAZOLAM 5 MG/5 ML (VERSED) VIAL ONE; +NITRO DRIP 25000 MCG/D5W 250 ML IV ONE; +NS IV 1000 ML 1,000 ML IV SCH; +NS IV 1000 ML 1,000 ML ONE; +VERAPAMIL 5 MG/2 ML (CALAN) VIAL IV ONE; +fentaNYL INJECTION 100 MCG/2 ML AMP ONE
--- NOTE | 2019-12-17 09:23 | Cardiac Procedure Note-CS/ASA ---
Pre-Procedure Note Pre-Op Procedure Note H&P Reviewed The H&P was reviewed, patient examined and no changes noted. Date H&P Reviewed: Dec 17, 2019 Time H&P Reviewed: 09:00 Conscious Sedation Pre-Proced Time 09:00 ASA Score 3 For ASA 3 and 4: Consider anesthesia and medical clearance. Also, for patients with a history of failed moderate sedation consider anesthesia. Airway Lungs Heart ASA score ASA 1: a normal healthy patient ASA 2: a patient with a mild systemic disease (mid diabetes, controlled hypertension, obesity x ASA 3: a patient with a severe systemic disease that limits activity (angina, COPD, prior Myocardial infarction) ASA 4: a patient with an incapacitating disease that is a constant threat to life (CHF, renal failure) ASA 5: a moribund patient not expected to survive 24 hrs. (ruptured aneurysm) ASA 6: a declared brain- patient whose organs are being harvested. For emergent operations, add the letter E after the classification Mallampati Classification Grade 3 Sedation Plan Analgesia, Amnesia, Plan communicated to team members, Discussed options with patient/fam, Discussed risks with patient/fam The patient is an appropriate candidate to undergo the planned procedure, sedation, and anesthesia. The patient immediately re-assessed prior to indication. SHELBIE CORONA MD Dec 17, 2019 9:23 am
[2019-12-17] MEDS ORDERED: NS IV 1000 ML 1,000 ML IV SCH (09:24)
--- NOTE | 2019-12-17 09:30 | Discharge Inst-Post CATH ---
Discharge Inst-CATH/EP Problems Reviewed?: Yes Post Cardiac Cath/EP D/C Inst Follow Up/Plan Appointment with Dr. CORONA's office in 4-8 weeks <b>CARDIAC CATH/EP PROCEDURE DISCHARGE INSTRUCTIONS</b> ACTIVITY * Go Home directly and rest. * Limit activity of the leg (or wrist if it was used) for 7 days including aerobics, swimming, jogging, bicycling, etc. * Restrict stair-climbing for 7 days if possible, if not, climb up with your non-cath leg, then bring together on the same step. * Avoid lifting, pushing, pulling or excessive movement of the affected extremity for 7 days. * Customary sexual activity may be resumed after 2 days-use caution not to use a position that strains or causes pain to the affected extremity. * No driving for 24 hours. * NO SMOKING. * Avoid straining for bowel movements for 7 days. * Gentle walking on level ground is allowed. * Returning to work will depend on the type of procedure and the results. Your doctor will discuss this with you. CALL YOUR DOCTOR FOR ANY OF THE FOLLOWING: *If bleeding from the puncture site occurs- Apply gentle pressure to site with clean cloth and call your doctor or EMS. * If a knot or lump forms under the skin, increases in size, or causes pain. * If bruising appears to be worsening or moving further down your leg instead of disappearing. * Temperature above 101 F. CARE OF YOUR GROIN INCISION; * Bruising or purple discoloration of the skin near the puncture site is common. * You may shower only, no bathtub bathing for 5 days. Be careful to avoid slipping as your leg may feel stiff. * If a closure device was used on your femoral artery, please see the attached guide regarding care of the device and your leg. * Leave dressing on FOR 24 hours. CARE OF YOUR WRIST INCISION; * Bruising or purple discoloration of the skin near the puncture site is common. * You may shower. * DO NOT submerge wrist. * Leave dressing on FOR 24 hours. SHELBIE CORONA MD Dec 17, 2019 9:30 am
--- NOTE | 2019-12-17 09:51 | Cardiac Cath Report ---
Cardiac Cath Report Physician (s)/Supply Chain Director (s) Physician SHELBIE CORONA MD Pre-Procedure Diagnosis Pre-Procedure Diagnosis: coronary artery disease Post-Procedure Note Procedure Start Date: Dec 17, 2019 Name of Procedure: Left heart catheterization Findings/Procedure Note PROCEDURE NOTE: 39 years old lady with chest pain and shortness of breath, had an abnormal stress test, scheduled for cardiac catheterization possible PTCA. After explaining the procedure to the patient, all pros and cons were explained, all questions were answered. The patient signed the consent and then she was placed on the cardiac catheterization laboratory. Groin was prepped SL fashion local anesthesia was used. Sheath placed in the right radial artery, Wilberforce catheter was used advanced to the left ventricular cavity, pressure was measured pullback LV to aorta was done, Akiko to the right coronary artery and angiogram was done then intubated the left coronary system and angiogram was done. At the end of the procedure the sheath was removed. Vascular band was used FINDINGS: Hemodynamics LV 126/15, end-diastolic pressure 15 Aorta 120/82 mean of 82 ANATOMY: Left Main is free of obstructive disease Left Anterior Descending has no significant disease Left Circumflex has no significant disease Right Coronory Artery has no significant disease LV Gram was not done, pressure was measured CONCLUSION: 1. Normal coronary system 2. Normal left ventricular end-diastolic pressure DISCUSSION AND RECOMMENDATION: There is no contraindication from cardiology standpoint to proceed with the planned surgery. Abnormal stress test is probably due to extracardiac attenuation. Patient has normal coronary system Anesthesia Type: Conscious Sedation Estimated blood loss (mL): 5 ml Contrast Amount: 35 ml Total Radiation Dose: 404 mGy Post-Procedure Diagnosis Post-operative diagnosis: Shortness of breath Hyperlipidemia Abnormal stress test SHELBIE CORONA MD Dec 17, 2019 9:51 am
== END 2019-12-17 12:15 | disposition home or self-care (01) ==
LOC: CATH 09:00 → SDC 09:36 → CATH 12:15
PROVIDERS: ATTEND Internal Medicine Cardiovascular Disease
DX: R06.02 Shortness of breath (principal); E78.5 Hyperlipidemia, unspecified; R94.39 Abnormal result of other cardiovascular function study; I11.9 Hypertensive heart disease without heart failure; E89.0 Postprocedural hypothyroidism; Z79.890 Hormone replacement therapy; Z79.899 Other long term (current) drug therapy; Z11.2 Encounter for screening for other bacterial diseases
CPT/HCPCS: 71045; 80053; 80061; 85027; 85610; 85730; 87081; 93458; C1894; 36415

== ENCOUNTER → 2020-01-06 | Outpatient (CLI) | payer BC ==
[~2020-01-06] MED LIST changes: -HEParin (CATH LAB) 2,000 ML IV ONE; -HEParin 1000 UNIT/ML (10ML VIAL) FOR BOLUS ONE; -LIDOCAINE 1% INJ 20 ML 20 ML VIAL ONE; -MIDAZOLAM 5 MG/5 ML (VERSED) VIAL ONE; -NITRO DRIP 25000 MCG/D5W 250 ML IV ONE; -NS IV 1000 ML 1,000 ML IV SCH; -NS IV 1000 ML 1,000 ML ONE; -VERAPAMIL 5 MG/2 ML (CALAN) VIAL IV ONE; -fentaNYL INJECTION 100 MCG/2 ML AMP ONE
== END ==
LOC: LABNPT 05:35
PROVIDERS: ATTEND Internal Medicine Cardiovascular Disease
DX: Z01.812 Encounter for preprocedural laboratory examination (principal); Z20.828 Contact with and (suspected) exposure to other viral communicable diseases
CPT/HCPCS: 87635

== ENCOUNTER → 2020-01-13 | Outpatient (CLI) | payer BC | LOC: LABNPT 08:44 | PROVIDERS: ATTEND Family Medicine | DX: Z01.812 Encounter for preprocedural laboratory examination (principal); Z20.828 Contact with and (suspected) exposure to other viral communicable diseases | CPT/HCPCS: 87635 ==

== ENCOUNTER 2020-01-14 20:55 | Outpatient (CLI) | payer BC | END 2020-01-15 06:15 | disposition home or self-care (01) | LOC: SLEEP 20:55 | PROVIDERS: ATTEND Internal Medicine Cardiovascular Disease | DX: G47.33 Obstructive sleep apnea (adult) (pediatric) (principal); G47.10 Hypersomnia, unspecified; Z20.828 Contact with and (suspected) exposure to other viral communicable diseases | CPT/HCPCS: 87635; 95810 ==

== ENCOUNTER 2020-06-30 09:23 | Emergency (ER) | payer BC, OTHER ==
[~2020-06-30] VITALS: Ht 165 cm; Wt 124.0 kg
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
[2020-06-30] MEDS ORDERED: ONDANSETRON 4 MG (ZOFRAN) ORAL DISSOLVE TAB PO ONE (09:45)
[2020-06-30] MEDS ORDERED: TETANUS,DIPTH,PERTUSS P/F (BOOSTRIX) 0.5 ML VIAL IM ONE (09:45)
--- NOTE | 2020-06-30 10:21 | Diagnostic Imaging Report ---
INDICATION: Digit pain 5th digit injury COMPARISON: None. FINDINGS: 3 views the right hand 5th digit demonstrate no fracture or dislocation. Articular surfaces are normal. No foreign body seen. No bony erosion. IMPRESSION: No fracture or dislocation. Dictated by: Dictated on workstation # [id number]
[2020-06-30] MEDS ORDERED: HYDROcodone/APAP 5 MG/325 MG (LORTAB) TAB PO ONE (10:45)
[2020-06-30] MEDS ORDERED: ACHD5005 PO (11:05)
[2020-06-30] MEDS ORDERED: AMOX-358 PO (11:05)
[2020-06-30] MEDS ORDERED: LORazepam 0.5 MG (ATIVAN) TABLET PO ONE (11:15)
[2020-06-30] MEDS ORDERED: ONDA4TAB11 PO (11:16)
[2020-06-30 11:37] VITALS: BP 150/85
== END 2020-06-30 11:40 | disposition home or self-care (01) ==
LOC: EDUNIT# 09:23 → ER 09:25
DX: S06.0X0A Concussion without loss of consciousness, initial encounter (principal); S51.852A Open bite of left forearm, initial encounter; S61.256A Open bite of right little finger without damage to nail, initial encounter; S00.531A Contusion of lip, initial encounter; R40.2360 Coma scale, best motor response, obeys commands, unspecified time; R40.2140 Coma scale, eyes open, spontaneous, unspecified time; R40.2250 Coma scale, best verbal response, oriented, unspecified time; E06.3 Autoimmune thyroiditis; J45.909 Unspecified asthma, uncomplicated; Z23 Encounter for immunization; Z97.5 Presence of (intrauterine) contraceptive device; Z85.850 Personal history of malignant neoplasm of thyroid; Y04.1XXA Assault by human bite, initial encounter; Y04.8XXA Assault by other bodily force, initial encounter
CPT/HCPCS: 12001; 73140; 90715